=== PATIENT | male | born 1950 | race Caucasian/White ===

== ENCOUNTER → 2020-02-01 11:01 | Outpatient (BNVA) | payer MEDICARE, SELFPAY | PROVIDERS: Referring Provider Nurse Practitioner Family; Visit Provider Internal Medicine | DX: G47.33 Obstructive sleep apnea (adult) (pediatric) (principal); E66.9 Obesity, unspecified; Z68.30 Body mass index [BMI] 30.0-30.9, adult; J44.9 Chronic obstructive pulmonary disease, unspecified; Z79.899 Other long term (current) drug therapy; Z99.89 Dependence on other enabling machines and devices | CPT/HCPCS: 99212 ==

== ENCOUNTER 2020-07-03 10:04 | Emergency (ER) | payer MEDICARE, SELFPAY ==
--- NOTE | ~2020-07-03 | XR_ITS ---
EXAMINATION: XR TOES, RIGHT CLINICAL INFORMATION: Pain in the right foot fourth toe. Status post trauma. COMPARISON: None TECHNIQUE: 3 views of the right toes were obtained. FINDINGS: Oblique, slightly distracted, not significantly displaced fracture is noted through the proximal metaphysis of the fourth proximal phalanx. There is no intra-articular extension. No additional fractures are noted. Mild degenerative changes are noted at the first MTP joint. Mild degenerative changes at multiple interphalangeal joints. XR/XR toe RT min 2V IMPRESSION: Not significantly displaced oblique fracture through the proximal metaphysis of the fourth proximal phalanx without intra-articular extension.
[2020-07-03 10:08] VITALS: BP 122/67; PULSE 99; RESP 18; TEMP 36.7; O2SAT 93; BMI 31.8
--- NOTE | 2020-07-03 11:03 | ED.LOWEXIN ---
HPI - Extremity Injury (Lower) General Chief Complaint: Extremity Injury, Lower Stated Complaint: toe pain Time Seen by Provider: 07/03/20 10:19 Source: patient Mode of arrival: ambulatory Limitations: no limitations History of Present Illness HPI Narrative: 70 y/o male with history of DM, obesity, COPD, HTN, hypothyroidism, & chronic pain who presents to the ED with right 4th toe pain, swelling and bruising after he accidentally kicked a dresser yesterday. He reports new onset of redness and warmth to the top of his foot when he woke up today, which had him concerned give his history of diabetes. He reports pain with ambulation, significant bruising of 4th toe. No bruising on his foot. No fever, chills. No injuries or wounds to the bottom of his foot. No open areas. He reports adequate glucose control. MD complaint: foot injury Onset (ago): day(s) (1) Injury: Right: toes (4th) Type of Injury: blunt Place: home Severity: moderate Severity scale (1-10): 5 Relieving factors: immobilization Exacerbating factors: weight bearing and palpation Context: direct blow Associated symptoms: swelling and able to partially bear weight Other symptoms: none Related Data Home Medications Medication Instructions Recorded Confirmed amitriptyline 75 mg tablet 75 mg PO BEDTIME 02/01/20 atorvastatin 20 mg tablet 20 mg PO DAILY 02/01/20 docusate sodium 100 mg capsule 100 mg PO BID 02/01/20 dulaglutide 1.5 mg/0.5 mL mg SUBCUT QWEEK 02/01/20 subcutaneous pen injector glipizide 5 mg tablet 5 mg PO BID 02/01/20 levothyroxine 100 mcg tablet 100 mcg PO DAILY 02/01/20 lisinopril 5 mg tablet 5 mg PO DAILY 02/01/20 metformin 500 mg tablet,extended 1,000 mg PO BID 02/01/20 release 24 hr naloxone 4 mg/actuation nasal spray 0 spray INTRANASAL 02/01/20 oxycodone 30 mg tablet,crush 30 mg PO Q12H 02/01/20 resistant,extended release 12 hr tiotropium bromide 18 mcg capsule 1 cap INHALATION DAILY 02/01/20 with inhalation device Previous Rx's Medication Instructions Recorded umeclidinium 62.5 mcg/actuation 1 inh PO DAILY #30 ea 03/15/20 blister powder for inhalation albuterol sulfate 90 mcg/actuation 2 puff PO Q4-6H PRN #8.5 g 06/06/20 aerosol inhaler fluticasone furoate 200 1 ea PO DAILY #60 ea 06/06/20 mcg-vilanterol 25 mcg/dose inhalation powder cephalexin 500 mg PO Q8H #15 cap 07/03/20 Allergies Allergy/AdvReac Type Severity Reaction Status Date / Time No Known Allergies Allergy Unknown Unverified 11/26/19 15:18 [No Known Allergies*] Review of Systems Review of Systems: Constitutional: No Fever, No Chills Cardiovascular: No Chest Pain, No SOB Respiratory: No Cough Gastrointestinal: No Nausea, No Vomiting Genitourinary: No Dysuria, No Urinary Frequency, No Hematuria Musculoskeletal: + joint pain, No Myalgias Skin: No Skin Lesions, No rash, +ertythema Neuro: No Weakness, No Numbness Heme/Lymph: + Bruising, No Lymphadenopathy PMFSH Past Medical History Attestation statement: The following information was validated with the patient. Medical History COPD (chronic obstructive pulmonary disease) Obesity (BMI 30.0-34.9) EFRAIN on CPAP Social History Social History Smoking Status: Current every day smoker Packs Per Day: 0.5 Cigarettes Per Day: 5 Advance Directives: No Advance Directives Information Provided: No Physical Exam Vital Signs: Vital Signs: Last Vital Signs Temp 98.1 F 07/03/20 10:08 Pulse 99 07/03/20 10:08 Resp 18 07/03/20 10:08 BP 122/67 07/03/20 10:08 Pulse Ox 93 07/03/20 10:08 Body Mass Index 31.8 Appearance: Alert. Oriented X3. No acute distress. HEENT: normal inspection CVS: Normal heart rate and rhythm. Pulses normal. Respiratory: No respiratory distress. Skin: Skin warm and dry. Normal skin color. Normal skin turgor. No rashes. Extremities: right foot with swollen and ecchymotic 4th toe, tender to touch. 5cm area on the top of his right foot with erythema and warmth. 2+ DP pulse. normal plantar aspect of right foot. Neuro: Oriented X 3. No motor deficit. No sensory deficit. Gait not tested due to pain Course Course Course Narrative: 70 y/o male presenting with right 4th toe pain, swelling, bruising after blunt injury yesterday. New erythema and warmth to the dorsal foot, possible inflammatory vs infectious. XR showing Not significantly displaced oblique fracture through the proximal metaphysis of the fourth proximal phalanx without intra-articular extension. Placed in post-op shoe for comfort. Will start abx for possible cellulitis given his history of DM. Area was marked with a marker. He was advised to return to the ED if erythema extends beyond markings in 48 hours. Recommended f/u with PCP and Ortho. Patient agrees with plan. Critical Care Time Critical Care Time Critical Care Time: No Discharge Plan Discharge Patient Disposition: Home, Self-Care Instructions: Toe Fracture (ED) Additional Instructions: Your x-ray today showed you broke your 4th toe on the right foot. Wear the post-op show provided to you in the ER today. You are being started on antibiotics for possible infection of the skin. If the redness on your foot extends beyond the markings in the next 48 hours, call your doctor or come back to the ER for further evaluation. You may bear weight as tolerted. Recommend rest, elevation when possible and use of ice several times per day. Follow up with your doctor next week. Follow up with Orthopedics as well. Prescriptions: New cephalexin 500 mg capsule 500 mg PO Q8H Qty: 15 RF: 0 No Action umeclidinium [Incruse Ellipta] 62.5 mcg/actuation blister with device 1 inh PO DAILY Qty: 30 RF: 0 fluticasone furoate-vilanterol [Breo Ellipta] 200-25 mcg/dose blister with device 1 ea PO DAILY Qty: 60 RF: 0 albuterol sulfate 90 mcg/actuation HFA aerosol inhaler 2 puff PO Q4-6H PRN (Reason: for wheezing) Qty: 8.5 RF: 0 docusate sodium 100 mg capsule 100 mg PO BID RF: 0 Trulicity 1.5 mg/0.5 mL pen injector subcut QWEEK RF: 0 metformin 500 mg tablet extended release 24 hr 1,000 mg PO BID RF: 0 Spiriva with HandiHaler 18 mcg capsule, w/inhalation device 1 cap inhalation DAILY RF: 0 levothyroxine 100 mcg tablet 100 mcg PO DAILY RF: 0 lisinopril 5 mg tablet 5 mg PO DAILY RF: 0 atorvastatin 20 mg tablet 20 mg PO DAILY RF: 0 Narcan 4 mg/actuation spray,non-aerosol 0 spray intranasal RF: 0 glipizide 5 mg tablet 5 mg PO BID RF: 0 amitriptyline 75 mg tablet 75 mg PO BEDTIME RF: 0 oxycodone 30 mg tablet,oral only,ext.rel.12 hr 30 mg PO Q12H RF: 0 Referrals: Ru Bergman MD [Physician] - 2 days (broken toe, diabetic)
== END 2020-07-03 11:47 | disposition home or self-care (01) ==
PROVIDERS: Emergency Provider Emergency Medicine; PCP Internal Medicine
DX: S92.511A Displaced fracture of proximal phalanx of right lesser toe(s), initial encounter for closed fracture (principal); W22.03XA Walked into furniture, initial encounter; F17.210 Nicotine dependence, cigarettes, uncomplicated; Y93.89 Activity, other specified; Y92.013 Bedroom of single-family (private) house as the place of occurrence of the external cause; Y99.9 Unspecified external cause status
CPT/HCPCS: 73660; 99283; 99284

== ENCOUNTER → 2020-12-07 10:47 | Outpatient (BNVA) | payer MEDICARE, SELFPAY | PROVIDERS: PCP Internal Medicine; Visit Provider Internal Medicine | DX: J44.9 Chronic obstructive pulmonary disease, unspecified (principal); G47.33 Obstructive sleep apnea (adult) (pediatric); F17.200 Nicotine dependence, unspecified, uncomplicated; E66.9 Obesity, unspecified; Z99.89 Dependence on other enabling machines and devices | CPT/HCPCS: 99212 ==

== ENCOUNTER → 2021-02-08 11:51 | Outpatient (BNVA) | payer MEDICARE, SELFPAY | PROVIDERS: PCP Internal Medicine; Visit Provider Internal Medicine | DX: G47.33 Obstructive sleep apnea (adult) (pediatric) (principal); G47.34 Idiopathic sleep related nonobstructive alveolar hypoventilation; J44.9 Chronic obstructive pulmonary disease, unspecified; F17.200 Nicotine dependence, unspecified, uncomplicated; Z99.89 Dependence on other enabling machines and devices | CPT/HCPCS: Q3014 ==

== ENCOUNTER → 2021-04-12 13:22 | Outpatient (BNVA) | payer MEDICARE, SELFPAY | PROVIDERS: PCP Internal Medicine; Visit Provider Internal Medicine | DX: J44.9 Chronic obstructive pulmonary disease, unspecified (principal); G47.33 Obstructive sleep apnea (adult) (pediatric); G47.34 Idiopathic sleep related nonobstructive alveolar hypoventilation; F17.210 Nicotine dependence, cigarettes, uncomplicated; Z99.89 Dependence on other enabling machines and devices | CPT/HCPCS: 99212 ==

== ENCOUNTER 2021-05-18 15:53 | Emergency (ER) | payer MEDICARE, SELFPAY ==
[2021-05-18 16:12] VITALS: BP 143/64; PULSE 90; RESP 16; TEMP 36.5; O2SAT 93; BMI 32.5
--- NOTE | 2021-05-18 17:08 | ED_ITS ---
HPI - Wound/Laceration General Chief Complaint: Wound/Laceration Stated Complaint: laceration to left hand Time Seen by Provider: 05/18/21 16:55 Source: patient Mode of arrival: ambulatory Limitations: no limitations History of Present Illness HPI narrative: 71-year-old male with a history of COPD, EFRAIN on CPAP, obesity, well controlled diabetes who presents to the ER with a skin tear to the dorsal aspect of his l eft hand that he sustained about 5 hours ago accidentally. He reports he was moving a chair out of a pickup truck and it slid and his hand scraped against the tailgate. It caused an irregular laceration to the dorsal aspect of his hand and he had a hard time controlling the bleeding. He is not on any anticoagulation. He has full movement of the hand and digits. He denies any numbness, weakness, tingling. He states immediately after the injury he rinsed his hand thoroughly under soapy water. He is not up-to-date on his tetanus shot. Onset (ago): hour(s) Extremity Location: left: hand Place: home Patient tetanus UTD: No Context: accidental Associated symptoms: other (Bleeding) Treatments prior to arrival: bandage Related Data Home Medications Medication Instructions Recorded Confirmed amitriptyline 75 mg tablet 75 mg PO BEDTIME 02/01/20 atorvastatin 20 mg tablet 20 mg PO DAILY 02/01/20 dulaglutide 1.5 mg/0.5 mL mg SUBCUT QWEEK 02/01/20 subcutaneous pen injector glipizide 5 mg tablet 5 mg PO BID 02/01/20 levothyroxine 100 mcg tablet 100 mcg PO DAILY 02/01/20 lisinopril 5 mg tablet 5 mg PO DAILY 02/01/20 metformin 500 mg tablet,extended 1,000 mg PO BID 02/01/20 release 24 hr naloxone 4 mg/actuation nasal spray 0 spray INTRANASAL 02/01/20 oxycodone 30 mg tablet,crush 30 mg PO Q12H 02/01/20 resistant,extended release 12 hr tiotropium bromide 18 mcg capsule 1 cap INHALATION DAILY 02/01/20 with inhalation device docusate sodium 100 mg capsule 100 mg PO BID 12/07/20 morphine 30 mg immediate release 0 mg PO 12/07/20 tablet Previous Rx's Medication Instructions Recorded fluticasone furoate 200 1 ea PO DAILY #60 ea 06/06/20 mcg-vilanterol 25 mcg/dose inhalation powder (Breo Ellipta) albuterol sulfate 90 mcg/actuation 2 puff PO Q4-6H PRN #8.5 g 04/11/21 aerosol inhaler albuterol sulfate 90 mcg/actuation 2 puff INHALATION Q4-6H PRN 30 04/12/21 aerosol inhaler (ProAir HFA) Days #8.5 g fluticasone furoate 200 1 inh INHALATION DAILY 30 Days #60 04/12/21 mcg-vilanterol 25 mcg/dose ea inhalation powder (Breo Ellipta) Allergies Allergy/AdvReac Type Severity Reaction Status Date / Time No Known Allergies Allergy Unknown Verified 05/18/21 16:11 [No Known Allergies*] Review of Systems Review of Systems: Constitutional: No Fever, No Chills Cardiovascular: No Chest Pain, No SOB Gastrointestinal: No Nausea, No Vomiting Musculoskeletal: No joint pain, No Myalgias Skin: + Skin Lesions, No rash Neuro: No Weakness, No Numbness Psych: No Anxiety/Panic, No Depression Heme/Lymph: + Bruising, No Lymphadenopathy PMFSH Past Medical History Medical History COPD (chronic obstructive pulmonary disease) Nocturnal hypoxemia Obesity (BMI 30.0-34.9) EFRAIN on CPAP Smoker Social History Social History Cigarette Packs Per Day: 0.5 Cigarettes Per Day: 5 Advance Directives: Yes Advance Directives Information Provided: No Advance Directives on File: No Physical Exam Vital Signs: Vital Signs: Last Vital Signs Temp 97.7 F 05/18/21 16:12 Pulse 90 05/18/21 16:12 Resp 16 05/18/21 16:12 BP 143/64 H 05/18/21 16:12 Pulse Ox 93 05/18/21 16:12 BMI result Body Mass Index 32.5 Appearance: Alert. Oriented X3. No acute distress. HEENT: normal inspection CVS: Normal heart rate and rhythm. Pulses normal. Respiratory: No respiratory distress. Skin: Skin warm and dry. Normal skin color. Normal skin turgor. No rashes. Extremities: Dorsal aspect of the left hand with a complex, stellate, superficial skin tear with minior active oozing. Deep structures are intact. No carpal tenderness. Neurovascularly intact distally. Normal range of motion of all the digits in the wrist. Neuro: Oriented X 3. No motor deficit. No sensory deficit. Course Course Course Narrative: 71-year-old male presents to the ER for evaluation of a skin tear on the dorsal aspect of his left hand that he sustained 5 hours ago after hitting it against a tailgate. Minor oozing on arrival. Skin is too friable and thin to suture. Will control the bleeding and close the wound with Steri-Strips. Local wound care performed. Patient counseled. Tdap given Reevaluation(s) Reevaluation #1: Adequate wound closure with Steri-Strips. Sterile dressing applied. Wound care discussed. Stable for DC home. Procedures Laceration Laceration 1: Site: hand Side (If applicable): left Size (cm): 5 Description: irregular Depth: simple, single layer Pre-repair: wound explored, irrigated extensively and deep structures intact Skin layer closed with: other (Steri-Strips) Discharge Plan Discharge Clinical Impression: Skin tear of left hand without complication Patient Disposition: Home, Self-Care Instructions: Skin Tear (ED) Additional Instructions: Steri-Strips were used to close your wound today. Do not peel them off, as the free at the edges just trim them. They will fall off on their own. Do not get wet for 24 hours, after that you can briefly wash with soap and water then pat dry. Use bacitracin 2x per day. Keep wound clean and covered. Do not submerge in water, don't do the dishes If you develop signs of infection including increased pain, swelling, redness or drainage of pus come back to the ER for further evaluation. Prescriptions: No Action fluticasone furoate-vilanterol [Breo Ellipta] 200-25 mcg/dose blister with device 1 ea PO DAILY Qty: 60 0RF albuterol sulfate 90 mcg/actuation HFA aerosol inhaler 2 puff PO Q4-6H PRN (Reason: for wheezing) Qty: 8.5 0RF Trulicity 1.5 mg/0.5 mL pen injector subcut QWEEK 0RF metformin 500 mg tablet extended release 24 hr 1,000 mg PO BID 0RF Spiriva with HandiHaler 18 mcg capsule, w/inhalation device 1 cap inhalation DAILY 0RF levothyroxine 100 mcg tablet 100 mcg PO DAILY 0RF lisinopril 5 mg tablet 5 mg PO DAILY 0RF atorvastatin 20 mg tablet 20 mg PO DAILY 0RF Narcan 4 mg/actuation spray,non-aerosol 0 spray intranasal 0RF glipizide 5 mg tablet 5 mg PO BID 0RF amitriptyline 75 mg tablet 75 mg PO BEDTIME 0RF oxycodone 30 mg tablet,oral only,ext.rel.12 hr 30 mg PO Q12H 0RF docusate sodium 100 mg capsule 100 mg PO BID 0RF morphine 30 mg tablet 0 mg PO 0RF Breo Ellipta 200-25 mcg/dose blister with device 1 inh inhalation DAILY 30 Days Qty: 60 5RF albuterol sulfate [ProAir HFA] 90 mcg/actuation HFA aerosol inhaler 2 puff inhalation Q4-6H PRN (Reason: shortness of breath or wheezing) 30 Days Qty: 8.5 5RF
[2021-05-18] MEDS: Diphth,Pertus(ACell),Tet Adult 0.5 ML SYRINGE IM (17:33)
== END 2021-05-18 17:38 | disposition home or self-care (01) ==
PROVIDERS: Emergency Provider Emergency Medicine Emergency Medical Services; PCP Internal Medicine
DX: S61.412A Laceration without foreign body of left hand, initial encounter (principal); W26.8XXA Contact with other sharp object(s), not elsewhere classified, initial encounter; Y93.9 Activity, unspecified; Y92.009 Unspecified place in unspecified non-institutional (private) residence as the place of occurrence of the external cause; Y99.9 Unspecified external cause status
CPT/HCPCS: 12002; 90471; 90715; 99283; 99284

== ENCOUNTER → 2021-06-06 11:21 | Outpatient (BNVA) | payer MEDICARE, SELFPAY | PROVIDERS: PCP Internal Medicine; Visit Provider Internal Medicine | DX: G47.33 Obstructive sleep apnea (adult) (pediatric) (principal); J44.9 Chronic obstructive pulmonary disease, unspecified; J96.91 Respiratory failure, unspecified with hypoxia; J96.92 Respiratory failure, unspecified with hypercapnia; E66.9 Obesity, unspecified; F17.210 Nicotine dependence, cigarettes, uncomplicated; Z99.89 Dependence on other enabling machines and devices | CPT/HCPCS: 99212 ==

== ENCOUNTER → 2021-10-10 13:08 | Outpatient (BNVA) | payer MEDICARE, SELFPAY | PROVIDERS: PCP Internal Medicine; Visit Provider Internal Medicine | DX: J44.9 Chronic obstructive pulmonary disease, unspecified (principal); J96.91 Respiratory failure, unspecified with hypoxia; J96.92 Respiratory failure, unspecified with hypercapnia; G47.33 Obstructive sleep apnea (adult) (pediatric); F17.200 Nicotine dependence, unspecified, uncomplicated; Z99.89 Dependence on other enabling machines and devices; Z71.6 Tobacco abuse counseling | CPT/HCPCS: 99212 ==

== ENCOUNTER → 2022-02-06 10:23 | Outpatient (BNVA) | payer MEDICARE, SELFPAY | PROVIDERS: PCP Internal Medicine; Visit Provider Internal Medicine | DX: G47.33 Obstructive sleep apnea (adult) (pediatric) (principal); J96.91 Respiratory failure, unspecified with hypoxia; J96.92 Respiratory failure, unspecified with hypercapnia; J44.9 Chronic obstructive pulmonary disease, unspecified; E66.9 Obesity, unspecified; Z99.89 Dependence on other enabling machines and devices; Z68.29 Body mass index [BMI] 29.0-29.9, adult | CPT/HCPCS: 99212 ==

== ENCOUNTER → 2022-06-14 10:45 | Outpatient (BNVA) | payer OTHER, SELFPAY | PROVIDERS: PCP Internal Medicine; Visit Provider Internal Medicine | DX: G47.33 Obstructive sleep apnea (adult) (pediatric) (principal); J44.9 Chronic obstructive pulmonary disease, unspecified; J96.91 Respiratory failure, unspecified with hypoxia; J96.92 Respiratory failure, unspecified with hypercapnia; E66.9 Obesity, unspecified; F17.210 Nicotine dependence, cigarettes, uncomplicated; Z99.89 Dependence on other enabling machines and devices; Z68.29 Body mass index [BMI] 29.0-29.9, adult | CPT/HCPCS: 99212 ==

== ENCOUNTER 2022-10-16 10:48 | Outpatient (AMB) | payer OTHER, SELFPAY ==
[2022-10-16 10:53] VITALS: BP 120/60; PULSE 95; O2SAT 92; BMI 28.3
--- NOTE | 2022-10-16 10:53 | MHC.OFFVIS ---
Intake Vital Signs 10/16/22 10:53 Height 6 ft Weight 209 lb BMI 28.3 BP 120/60 Blood Pressure Location Lt brachial Position Sitting Pulse 95 Pulse Source Pulse Oximeter Pulse Oximetry (%) 92 Oxygen Delivery Method Room Air Intake Visit Reasons: sleep apnea Intake Note: pt is here for follow up and states his breathing is getting worse. He bleeds oxygen 2 liters with c-pap. 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: No Allergies No Known Allergies [No Known Allergies*] Allergy (Unknown, Verified 10/16/22 11:09) Medication List - Last Reconciled 10/16/22 by Brennen Smith MD albuterol sulfate 90 mcg/actuation 2 puffs PO Q4-6H PRN albuterol sulfate 2.5 mg (3 mL) inhalation Q6H PRN aspirin 81 mg PO DAILY atorvastatin 20 mg PO DAILY docusate sodium 100 mg PO BID dulaglutide mg subcut QWEEK qrapdfopixn-uovuvwchw-fuvjncld 200-62.5-25 mcg (Trelegy Ellipta) 1 ea inhalation DAILY 30 days lisinopril 5 mg PO DAILY magnesium gluconate 54 mg PO DAILY metformin ER 1,000 mg PO BID naloxone 4 mg/actuation 0 sprays intranasal nicotine (Nicotrol) 1 inh inhalation Q2-4H PRN 30 days oxycodone 30 mg PO Q4H PRN oxycodone ER 30 mg PO Q12H Do you need a note to return to daycare/school/sports/work: No HPI sleep apnea HPI Details THIS 72 YEARS OLD GENTLEMAN IS A REGULAR USER OF IVAPS AT NIGHT. ( iVAPS TARGET VENTILATION 5.8 L EPAP 7cm mIN ps 6 CMS MAX PS 15 CMs TARGET HR 15 ) HE GOES TO BED LATE AND ENDS UP USING IT ONLY FOR ABOUT 5 HOURS PER NIGHT. HIS COMPLIANCE IS EXCELLENT. HE HAS ADVANCED CHRONIC OBSTRUCTIVE PULMONARY. DISEASE WHICH HOWEVER IS REMAINING STABLE HE IS USING TRELEGY 1 INHALER DAILY. AND USES ALBUTEROL ONLY SPARINGLY. DURING THE DAYTIME HE IS ACTIVE AND GOES AROUND, THOUGH HE COMPLAINS OF GETTING SHORT OF BREATH MORE. EASILY THAN BEFORE HE DENIES ANY ATTACKS OF COUGH OR WHEEZING. PFSH Medical History COPD (chronic obstructive pulmonary disease) Nocturnal hypoxemia Obesity (BMI 30.0-34.9) EFRAIN on CPAP Respiratory failure with hypoxia and hypercapnia Smoker Social History Patient Tobacco Use Status: Current everyday Tobacco user Tobacco use type: Cigarette Cigarette Packs Per Day: 0.5 Cigarettes Per Day: 10 Years Smoked: 20+ years, could be a pack a day at times. Review of Systems Const All systems reviewed & are unremarkable except as noted in HPI and below Eyes Reports no additional complaints ENT Reports no additional complaints Card Denies chest pain, Denies irregular heart rhythm and Denies leg edema Resp Reports as per HPI GI Reports no additional complaints Reports no additional complaints Musc Reports back pain (Chronic, being treated with long-acting oxycodone) Skin/Breast Reports system reviewed and no additional complaints, except as documented Neuro Reports no additional complaints Psych Reports no additional complaints Endo Reports other (Being treated for type 2 diabetes mellitus and hyperlipidemia, hypothyroidi) Physical Exam Vital Signs: Last Vital Signs Pulse 95 10/16/22 10:53 BP 120/60 10/16/22 10:53 Pulse Ox 92 10/16/22 10:53 Oxygen Delivery Method Room Air 10/16/22 10:53 BMI result Body Mass Index 28.3 Const General: healthy appearing, comfortable, no acute distress, alert and awake Orientation/consciousness: patient oriented x3 HEENT Head: Yes normal to inspection General nose exam: No nasal polyps present and No nasal discharge present Face and sinus: Yes sinuses nontender Mouth: oropharynx normal Throat: Yes posterior oropharynx normal Eyes General: appearance normal, both eyes and all related structures Neck Neck: Yes normal visual inspection, Yes no lymphadenopathy, Yes trachea midline and Yes no JVD Thyroid: Thyroid normal Chest Chest palpation & inspection: normal inspection of the chest, normal palpation of entire chest wall and no tenderness Resp Other: Percussion note is resonant, breath sounds are distant but equal on both sides with prolonged expiratory phase. He has no audible wheezes or rhonchi. Cardio Palpation: normal PMI Rate: regular rate Rhythm: regular rhythm Heart sounds: no gallops and no murmurs GI Palpation (GI): Soft to palpation, nontender, No hepatosplenomegaly present and no masses Auscultation: normal bowel sounds Back/Spine/Pelvis Thoracic/Lumbar Spine: thoracic and lumbar spine normal to inspection Skin General skin exam: no rashes or lesions noted Neuro General: patient oriented x3 and no focal motor deficits Cranial nerves: Yes CN's II-XII intact bilaterally Extrem General: Yes normal to inspection, Yes no clubbing, cyanosis or edema and Yes no calf tenderness Psych Appearance: grossly normal and well kempt Speech and movement: Normal speech and movement present Results Reviewed Results Reviewed: COMPLIANCE REPORT IS REVIEWED. USED 29/30 NIGHTS, 97%. AVERAGE USE PER NIGHT 5 HOURS . SOME LEAK IS NOTED MAXIMUM 57.6. RESIDUAL AHI 2.1 HE DOES USE O2 2 L/MINUTE ALONG WITH THE VENTILATOR. Assessment & Plan Assessment & Plan (1) COPD (chronic obstructive pulmonary disease): Comment: COPD, IS SEVERE , BUT SEEMS TO BE CONTROLLED AND STABLE . TX: TRELEGY ELLIPTA ONE INH DAILY . script renewed PROAIR HFA 2 PUFFS Q 6 HRS PRN .( SCRIPT RENEWED ) Code(s): J44.9 - Chronic obstructive pulmonary disease, unspecified (2) EFRAIN on CPAP: Comment: HE HAS CHRONIC EFRAIN/HYPOVENTILATION SYNDROME. WELL TREATED WITH HIS NONINVASIVE VENTILATORY SUPPORT AT NIGHT(IVAPS ) with nasal pillows. COMPLIANCE IS GOOD . ADVISED TO USE AT LEAST FOR 6 HOURS PER NIGHT. Code(s): G47.33 - Obstructive sleep apnea (adult) (pediatric); Z99.89 - Dependence on other enabling machines and devices (3) Nocturnal hypoxemia: Comment: For his nocturnal hypoxemia he will continue to use O2 2 L/minute along with the CPAP. Code(s): G47.34 - Idiopathic sleep related nonobstructive alveolar hypoventilation (4) Respiratory failure with hypoxia and hypercapnia: Comment: Has chronic EFRAIN/hypoventilation syndrome, It is well treated with IVAPS mode of ventilatory support. Also uses O2 2 L/minute at night along with the CPAP. Advise that who E good use O2 2 L/minute for short intervals p.r.n. during the daytime, Code(s): J96.91 - Respiratory failure, unspecified with hypoxia; J96.92 - Respiratory failure, unspecified with hypercapnia (5) Smoker: Comment: He has been a chronic smoker, down to 10 cigarettes a day . COUNSELLED TO QUIT COMPLETELY. RISKS CONTINUED SMOKING OR EXPLAINED.. He said he is going to try to cut down further, likes to try using NICOTROL , PRESCRIPTION SENT *Also re-discussed about annual lung screening program. He declined to participate in that. Says that he does not want to know anything, and has anxiety about going in the CT scan tube. still agreed to see the Annual Screening team Code(s): F17.200 - Nicotine dependence, unspecified, uncomplicated Coding Level of Care Code Est Pt Level 4 (94919) Diagnoses COPD (chronic obstructive pulmonary disease) J44.9 EFRAIN on CPAP G47.33; Z99.89 Nocturnal hypoxemia G47.34 Respiratory failure with hypoxia and hypercapnia J96.91; J96.92 Smoker F17.200
== END 2022-10-16 11:20 | disposition home or self-care (01) ==
PROVIDERS: PCP Internal Medicine; Visit Provider Internal Medicine
DX: J44.9 Chronic obstructive pulmonary disease, unspecified (principal); G47.33 Obstructive sleep apnea (adult) (pediatric); Z99.89 Dependence on other enabling machines and devices; G47.34 Idiopathic sleep related nonobstructive alveolar hypoventilation; J96.91 Respiratory failure, unspecified with hypoxia; J96.92 Respiratory failure, unspecified with hypercapnia; F17.200 Nicotine dependence, unspecified, uncomplicated
CPT/HCPCS: 99214

== ENCOUNTER → 2022-10-16 10:48 | Outpatient (BNVA) | payer OTHER, SELFPAY | PROVIDERS: Visit Provider Internal Medicine | DX: J44.9 Chronic obstructive pulmonary disease, unspecified (principal); G47.33 Obstructive sleep apnea (adult) (pediatric); G47.34 Idiopathic sleep related nonobstructive alveolar hypoventilation; J96.91 Respiratory failure, unspecified with hypoxia; J96.92 Respiratory failure, unspecified with hypercapnia; F17.210 Nicotine dependence, cigarettes, uncomplicated; Z99.89 Dependence on other enabling machines and devices | CPT/HCPCS: 99212 ==

== ENCOUNTER 2023-02-18 10:52 | Outpatient (AMB) | payer OTHER, SELFPAY ==
[2023-02-18 10:53] VITALS: BP 148/68; PULSE 97; O2SAT 93; BMI 28.7
--- NOTE | 2023-02-18 10:53 | MHC.OFFVIS ---
Intake Vital Signs 02/18/23 10:53 Height 6 ft Weight 212 lb BMI 28.7 BP 148/68 H Blood Pressure Location Lt brachial Position Sitting Pulse 97 Pulse Source Pulse Oximeter Pulse Oximetry (%) 93 Oxygen Delivery Method Room Air Intake Visit Reasons: sleep apnea Intake Note: pt is here for follow up and he does state more increased in shortness of breath, Child Development Assistant Required: No Allergies No Known Allergies [No Known Allergies*] Allergy (Unknown, Verified 02/18/23 11:20) Medication List - Last Reconciled 02/18/23 by Brennen Smith MD albuterol sulfate 2.5 mg (3 mL) inhalation Q6H PRN albuterol sulfate 90 mcg/actuation 2 puffs PO Q4-6H PRN 30 days aspirin 81 mg PO DAILY atorvastatin 20 mg PO DAILY docusate sodium 100 mg PO BID dulaglutide mg subcut QWEEK ulcambipiye-naxkiedgb-ejcutfcy 200-62.5-25 mcg (Trelegy Ellipta) 1 ea inhalation DAILY 30 days lisinopril 5 mg PO DAILY magnesium gluconate 54 mg PO DAILY metformin ER 1,000 mg PO BID naloxone 4 mg/actuation 0 sprays intranasal nicotine (Nicotrol) 1 inh inhalation Q2-4H PRN 30 days oxycodone 20 mg PO Q4H PRN oxycodone ER 30 mg PO Q12H Do you need a note to return to daycare/school/sports/work: No HPI sleep apnea HPI Details 72 years old gentleman a long-time smoker, has chronic obstructive pulmonary disease which is quite severe. He is retired but does lot of the [employer] work at home. He is still smoking about half pack of cigarettes a day. Claims that he gets short of breath on exertion , and only occasional feeling of congestion and wheezing at rest. He is using Trelegy 1 inhalation daily and albuterol only as needed. He remains moderately overweight, He is a case of obstructive sleep apnea. Uses CPAP with nasal pillows. He is very compliant, and gets good sleep during the night. He has chronic back pain for which he uses OxyContin twice a day as well as oxycodone p.r.n.. Has been on gabapentin which he has stop because it makes him feel weak and groggy. [facility] Medical History Respiratory failure with hypoxia and hypercapnia Nocturnal hypoxemia Smoker COPD (chronic obstructive pulmonary disease) EFRAIN on CPAP Obesity (BMI 30.0-34.9) Social History Patient Tobacco Use Status: Current everyday Tobacco user Tobacco use type: Cigarette Cigarette Packs Per Day: 0.5 Cigarettes Per Day: 10 Years Smoked: 20+ years, could be a pack a day at times. Review of Systems Const All systems reviewed & are unremarkable except as noted in HPI and below Eyes Reports no additional complaints ENT Reports no additional complaints Card Denies chest pain, Denies irregular heart rhythm and Denies leg edema Resp Reports as per HPI GI Reports no additional complaints Reports no additional complaints Musc Reports back pain (Chronic, being treated with long-acting oxycodone) Skin/Breast Reports system reviewed and no additional complaints, except as documented Neuro Reports no additional complaints Psych Reports no additional complaints Endo Reports other (Being treated for type 2 diabetes mellitus and hyperlipidemia, hypothyroidi) Physical Exam Vital Signs: Last Vital Signs Pulse 97 02/18/23 10:53 BP 148/68 H 02/18/23 10:53 Pulse Ox 93 02/18/23 10:53 Oxygen Delivery Method Room Air 02/18/23 10:53 BMI result Body Mass Index 28.7 Const General: healthy appearing, comfortable, no acute distress, alert and awake Orientation/consciousness: patient oriented x3 HEENT Head: Yes normal to inspection General nose exam: No nasal polyps present and No nasal discharge present Face and sinus: Yes sinuses nontender Mouth: oropharynx normal Throat: Yes posterior oropharynx normal Eyes General: appearance normal, both eyes and all related structures Neck Neck: Yes normal visual inspection, Yes no lymphadenopathy, Yes trachea midline and Yes no JVD Thyroid: Thyroid normal Chest Chest palpation & inspection: normal inspection of the chest, normal palpation of entire chest wall and no tenderness Resp Other: Percussion note is resonant, breath sounds are distant but equal on both sides with prolonged expiratory phase. He has no audible wheezes or rhonchi. Cardio Palpation: normal PMI Rate: regular rate Rhythm: regular rhythm Heart sounds: no gallops and no murmurs GI Palpation (GI): Soft to palpation, nontender, No hepatosplenomegaly present and no masses Auscultation: normal bowel sounds Back/Spine/Pelvis Thoracic/Lumbar Spine: thoracic and lumbar spine normal to inspection Skin General skin exam: no rashes or lesions noted Neuro General: patient oriented x3 and no focal motor deficits Cranial nerves: Yes CN's II-XII intact bilaterally Extrem General: Yes normal to inspection, Yes no clubbing, cyanosis or edema and Yes no calf tenderness Psych Appearance: grossly normal and well kempt Speech and movement: Normal speech and movement present Results Reviewed Results Reviewed: Compliance report is reviewed. He has used 30/30 nights, 100%. Average use it per night 6 hours 0 minutes. iVAPS with nasal pillows. . There is a mild air leak residual AHI 3.6 Assessment & Plan Assessment & Plan (1) COPD (chronic obstructive pulmonary disease): Comment: COPD, IS SEVERE , BUT SEEMS TO BE CONTROLLED AND STABLE . TX: TRELEGY ELLIPTA ONE INH DAILY . script renewed PROAIR HFA 2 PUFFS Q 6 HRS PRN . Code(s): J44.9 - Chronic obstructive pulmonary disease, unspecified Plan: as above (2) Respiratory failure with hypoxia and hypercapnia: Comment: Has chronic COPD/EFRAIN/hypoventilation syndrome, It is well treated with IVAPS mode of ventilatory support. Also uses O2 2 L/minute at night along with the CPAP. Advise that who he can use O2 2 L/minute for short intervals p.r.n. during the daytime, Code(s): J96.91 - Respiratory failure, unspecified with hypoxia; J96.92 - Respiratory failure, unspecified with hypercapnia Plan: as above (3) Smoker: Comment: He has been a chronic smoker, down to 10 cigarettes a day . COUNSELLED TO QUIT COMPLETELY. RISKS CONTINUED SMOKING OR EXPLAINED.. He said he is going to try to cut down further, likes to try using NICOTROL , PRESCRIPTION SENT *Also re-discussed about Annual lung screening program. He declined to participate in that. Says that he does not want to know anything, and has anxiety about going in the CT scan tube. still agreed to see the Annual Screening team Code(s): F17.200 - Nicotine dependence, unspecified, uncomplicated Plan: as above (4) EFRAIN on CPAP: Comment: HE HAS CHRONIC EFRAIN/HYPOVENTILATION SYNDROME. WELL TREATED WITH HIS NONINVASIVE VENTILATORY SUPPORT AT NIGHT(IVAPS ) with nasal pillows. COMPLIANCE IS GOOD . ADVISED TO USE AT LEAST FOR 6 HOURS PER NIGHT. Code(s): G47.33 - Obstructive sleep apnea (adult) (pediatric); Z99.89 - Dependence on other enabling machines and devices Plan: as above Coding Level of Care Code Est Pt Level 4 (07138) Diagnoses COPD (chronic obstructive pulmonary disease) J44.9 Respiratory failure with hypoxia and hypercapnia J96.91; J96.92 Smoker F17.200 EFRAIN on CPAP G47.33; Z99.89
== END 2023-02-18 11:21 | disposition home or self-care (01) ==
PROVIDERS: PCP Internal Medicine; Visit Provider Internal Medicine
DX: J44.9 Chronic obstructive pulmonary disease, unspecified (principal); J96.91 Respiratory failure, unspecified with hypoxia; J96.92 Respiratory failure, unspecified with hypercapnia; F17.200 Nicotine dependence, unspecified, uncomplicated; G47.33 Obstructive sleep apnea (adult) (pediatric); Z99.89 Dependence on other enabling machines and devices
CPT/HCPCS: 99214

== ENCOUNTER → 2023-02-18 10:52 | Outpatient (BNVA) | payer OTHER, SELFPAY | PROVIDERS: PCP Internal Medicine; Visit Provider Internal Medicine | DX: J44.9 Chronic obstructive pulmonary disease, unspecified (principal); J96.91 Respiratory failure, unspecified with hypoxia; J96.92 Respiratory failure, unspecified with hypercapnia; G47.33 Obstructive sleep apnea (adult) (pediatric); F17.210 Nicotine dependence, cigarettes, uncomplicated; Z99.89 Dependence on other enabling machines and devices | CPT/HCPCS: 99212 ==

== ENCOUNTER 2023-02-27 13:10 | Outpatient (AMB) | payer OTHER, SELFPAY ==
[2023-02-27 13:40] VITALS: BP 100/60; PULSE 98; O2SAT 94
--- NOTE | 2023-02-27 13:40 | MHC.OFFVIS ---
Intake Vital Signs 02/27/23 13:40 Weight 211 lb 10.3 oz BP 100/60 Blood Pressure Location Rt brachial Position Sitting Pulse 98 Pulse Source Pulse Oximeter Pulse Oximetry (%) 94 Oxygen Delivery Method Room Air Intake Visit Reasons: 6 minute walk Allergies No Known Allergies [No Known Allergies*] Allergy (Unknown, Verified 02/27/23 13:41) Medication List - Last Reconciled 02/27/23 by Stephanie Oakes LPN albuterol sulfate 2.5 mg (3 mL) inhalation Q6H PRN albuterol sulfate 90 mcg/actuation 2 puffs PO Q4-6H PRN 30 days aspirin 81 mg PO DAILY atorvastatin 20 mg PO DAILY docusate sodium 100 mg PO BID dulaglutide mg subcut QWEEK imirsvczjor-wyoaeezgb-kossfsmp 200-62.5-25 mcg (Trelegy Ellipta) 1 ea inhalation DAILY 30 days lisinopril 5 mg PO DAILY magnesium gluconate 54 mg PO DAILY metformin ER 1,000 mg PO BID naloxone 4 mg/actuation 0 sprays intranasal nicotine (Nicotrol) 1 inh inhalation Q2-4H PRN 30 days oxycodone 20 mg PO Q4H PRN oxycodone ER 30 mg PO Q12H PFSH Medical History Respiratory failure with hypoxia and hypercapnia Nocturnal hypoxemia Smoker COPD (chronic obstructive pulmonary disease) EFRAIN on CPAP Obesity (BMI 30.0-34.9) Social History Patient Tobacco Use Status: Current everyday Tobacco user Tobacco use type: Cigarette Cigarette Packs Per Day: 0.5 Cigarettes Per Day: 10 Years Smoked: 20+ years, could be a pack a day at times. Physical Exam Vital Signs: Last Vital Signs Pulse 98 02/27/23 13:40 BP 100/60 02/27/23 13:40 Pulse Ox 94 02/27/23 13:40 Oxygen Delivery Method Room Air 02/27/23 13:40 Office Procedures 6 Minute Walk Time:: 13:30 SPO2 % at rest: 93 Pulse at rest: 98 SPO2 % during excercise: 93 Pulse during excercise: 125 SPO2 % after excercise: 94 Pulse after excercise: 109 Distance in yards walked: 600 Matilda Score: 5 Performance Observations:: Salvador walked on level ground without assistance. He walked on room air and maintained his SPO2 93-94% during the entire walk, no supplemental O2 needed. He did stop at 1 minute for a brief rest d/t fatigue and foot pain from neuropathy. Walk performed by Zohra Diaz RRT. [id number] - 6 Minute Walk Assessment & Plan Assessment & Plan (1) COPD (chronic obstructive pulmonary disease): Comment: COPD, IS SEVERE , BUT SEEMS TO BE CONTROLLED AND STABLE . TX: TRELEGY ELLIPTA ONE INH DAILY . script renewed PROAIR HFA 2 PUFFS Q 6 HRS PRN . Code(s): J44.9 - Chronic obstructive pulmonary disease, unspecified Plan: continue the same Orders: Orders AMB 6 minute walk 02/27/23 J44.9 - Chronic obstructive pulmonary disease, unspecified Coding Level of Care Code Established Pt Est Pt Level 1 (48123) Patient Type Established Diagnoses COPD (chronic obstructive pulmonary disease) J44.9 CPT Codes Coding ([id number]) Comment NURSE VISIT ONLY
[2023-02-27 13:43] VITALS: PULSE 98; O2SAT 93
== END 2023-02-27 13:52 | disposition home or self-care (01) ==
PROVIDERS: PCP Internal Medicine; Visit Provider Internal Medicine
DX: J44.9 Chronic obstructive pulmonary disease, unspecified (principal)
CPT/HCPCS: 94618

== ENCOUNTER → 2023-02-27 13:10 | Outpatient (BNVA) | payer OTHER, SELFPAY | PROVIDERS: PCP Internal Medicine; Visit Provider Internal Medicine | DX: J44.9 Chronic obstructive pulmonary disease, unspecified (principal) | CPT/HCPCS: 94618; 99211 ==

== ENCOUNTER 2023-08-20 11:14 | Outpatient (AMB) | payer OTHER, SELFPAY ==
--- NOTE | 2023-08-20 11:19 | A.OFFVIS_ITS ---
Vital Signs 08/20/23 11:20 Height 6 ft Weight 209 lb 0.44 oz BMI 28.3 BP 104/58 L Blood Pressure Location Lt brachial Position Sitting Pulse 91 Pulse Source Pulse Oximeter Pulse Oximetry (%) 95 Oxygen Delivery Method Room Air Intake Visit Reasons: sleep apnea Intake Note: pt is here for follow up and states oxygen with bi-pap., Executive Talent Acquisition Consultant Required: No Allergies No Known Allergies [No Known Allergies*] Allergy (Unknown, Verified 08/20/23 11:27) HPI Comments Details: This 73 years old gentleman, is a case of advanced chronic obstructive pulmonary disease, as well as obstructive sleep apnea/hypoventilation syndrome. He is being treated with AirCurve 10 ST -A , iVAPS mode along with O2 2 L/minute at night. He is compliant and uses the respirator every night, but he is using only for about 3-4 hours. He has hard time to fall asleep and usually sleeps between 01:00 to 05:00 AM His sleep schedule is somewhat deranged . He is still smoking half to 1 pack of cigarettes a day, he is active in ANNUAL LUNG SCREENING PROGRAM. Complains of getting short of breath when he walks around, and has intermittent cough without much expectoration. He is using Trelegy appy Ellipta 1 inhalation daily and uses albuterol only once in a while. [facility] Medical History Respiratory failure with hypoxia and hypercapnia Nocturnal hypoxemia Smoker COPD (chronic obstructive pulmonary disease) EFRAIN on CPAP Obesity (BMI 30.0-34.9) Social History Patient Tobacco Use Status: Current everyday Tobacco user Tobacco use type: Cigarette Cigarette Packs Per Day: 0.5 Cigarettes Per Day: 10 Years Smoked: 20+ years, could be a pack a day at times. Review of Systems Const All systems reviewed & are unremarkable except as noted in HPI and below Eyes Reports no additional complaints ENT Reports no additional complaints Card Denies chest pain, Denies irregular heart rhythm and Denies leg edema Resp Reports as per HPI GI Reports no additional complaints Reports no additional complaints Musc Reports back pain (Chronic, being treated with long-acting oxycodone) Skin/Breast Reports system reviewed and no additional complaints, except as documented Neuro Reports no additional complaints Psych Reports no additional complaints Endo Reports other (Being treated for type 2 diabetes mellitus and hyperlipidemia, hypothyroidi) Physical Exam Vital Signs: Last Vital Signs Pulse 91 08/20/23 11:20 BP 104/58 L 08/20/23 11:20 Pulse Ox 95 08/20/23 11:20 Oxygen Delivery Method Room Air 08/20/23 11:20 BMI result Body Mass Index 28.3 Const General: healthy appearing, comfortable, no acute distress, alert and awake Orientation/consciousness: patient oriented x3 HEENT Head: Yes normal to inspection General nose exam: No nasal polyps present and No nasal discharge present Face and sinus: Yes sinuses nontender Mouth: oropharynx normal Throat: Yes posterior oropharynx normal Eyes General: appearance normal, both eyes and all related structures Neck Neck: Yes normal visual inspection, Yes no lymphadenopathy, Yes trachea midline and Yes no JVD Thyroid: Thyroid normal Chest Chest palpation & inspection: normal inspection of the chest, normal palpation of entire chest wall and no tenderness Resp Other: Percussion note is resonant, breath sounds are distant but equal on both sides with prolonged expiratory phase. He has no audible wheezes or rhonchi. Cardio Palpation: normal PMI Rate: regular rate Rhythm: regular rhythm Heart sounds: no gallops and no murmurs GI Palpation (GI): Soft to palpation, nontender, No hepatosplenomegaly present and no masses Auscultation: normal bowel sounds Back/Spine/Pelvis Thoracic/Lumbar Spine: thoracic and lumbar spine normal to inspection Skin General skin exam: no rashes or lesions noted Neuro General: patient oriented x3 and no focal motor deficits Cranial nerves: Yes CN's II-XII intact bilaterally Extrem General: Yes normal to inspection, Yes no clubbing, cyanosis or edema and Yes no calf tenderness Psych Appearance: grossly normal and well kempt Speech and movement: Normal speech and movement present Results Reviewed Results Reviewed: Compliance report for the last 30 nights is reviewed He has used 27/30 nights, 90%. Average use it per night 3 hours 58 minutes. There is only small amount of air leak Residual AHI only 1 SPIROMETRY FVC FEV1 FEV1/FVC FEF 25-75 02/01/20 70% 57 % 62 37 % 08/20/23 Assessment & Plan Assessment & Plan (1) Obesity (BMI 30.0-34.9): Comment: CONTINUES TO BE MODERATELY OVERWEIGHT, HAS LOST A FEW LB SINCE LAST YEAR. Code(s): E66.9 - Obesity, unspecified Category: Medical Plan: ENCOURAGED TO LOSE WEIGHT SLOWLY, BUT DOES NOT SEEM TO BE REALISTIC GOAL IN HIS CASE. (2) EFRAIN on CPAP: Comment: HE HAS CHRONIC EFRAIN/HYPOVENTILATION SYNDROME. WELL TREATED WITH HIS NONINVASIVE VENTILATORY SUPPORT AT NIGHT(IVAPS ) with nasal pillows. COMPLIANCE IS SOME WHAT SUBOPTIMAL . Code(s): G47.33 - Obstructive sleep apnea (adult) (pediatric); Z99.89 - Dependence on other enabling machines and devices Category: Medical Plan: HAD A GOOD TALK AND ENCOURAGED HIM TO USE AT LEAST FOR. 5-6 HOURS EVERY NIGHT HE MAY USE IT FOR AN HOUR OR 2 DURING THE DAYTIME WELL. (3) COPD (chronic obstructive pulmonary disease): Comment: COPD, IS SEVERE , BUT SEEMS TO BE CONTROLLED AND STABLE . Code(s): J44.9 - Chronic obstructive pulmonary disease, unspecified Category: Medical Plan: TX: TRELEGY ELLIPTA ONE INH DAILY . script renewed PROAIR HFA 2 PUFFS Q 6 HRS PRN .( SCRIPT RENEWED ) (4) Smoker: Comment: He has been a chronic smoker, down to 15 cigarettes a day . Code(s): F17.200 - Nicotine dependence, unspecified, uncomplicated Category: Social Hx Plan: COUNSELLED TO QUIT COMPLETELY. RISKS CONTINUED SMOKING OR EXPLAINED.. He said he is going to try to cut down further, likes to try using NICOTROL , PRESCRIPTION SENT *Also re-discussed about Annual lung screening program. He declined to participate in that. Says that he does not want to know anything, and has anxiety about going in the CT scan tube. still agreed to see the Annual Screening team (5) Respiratory failure with hypoxia and hypercapnia: Comment: Has chronic COPD/EFRAIN/hypoventilation syndrome, It is well treated with IVAPS mode of ventilatory support. Also uses O2 2 L/minute at night along with the CPAP. Code(s): J96.91 - Respiratory failure, unspecified with hypoxia; J96.92 - Respiratory failure, unspecified with hypercapnia Category: Medical Plan: Advised that he can use O2 2 L/minute for short intervals p.r.n. during the daytime, Coding Level of Care Code Est Pt Level 4 (71286) Diagnoses Obesity (BMI 30.0-34.9) E66.9 EFRAIN on CPAP G47.33; Z99.89 COPD (chronic obstructive pulmonary disease) J44.9 Smoker F17.200 Respiratory failure with hypoxia and hypercapnia J96.91; J96.92
[2023-08-20 11:20] VITALS: BP 104/58; PULSE 91; O2SAT 95; BMI 28.3
== END 2023-08-20 11:57 | disposition home or self-care (01) ==
PROVIDERS: PCP Internal Medicine; Visit Provider Internal Medicine
DX: E66.9 Obesity, unspecified (principal); G47.33 Obstructive sleep apnea (adult) (pediatric); Z99.89 Dependence on other enabling machines and devices; J44.9 Chronic obstructive pulmonary disease, unspecified; F17.200 Nicotine dependence, unspecified, uncomplicated; J96.91 Respiratory failure, unspecified with hypoxia; J96.92 Respiratory failure, unspecified with hypercapnia
CPT/HCPCS: 94010; 99214

== ENCOUNTER → 2023-08-20 11:14 | Outpatient (BNVA) | payer OTHER, SELFPAY | PROVIDERS: PCP Internal Medicine; Visit Provider Internal Medicine | DX: J44.9 Chronic obstructive pulmonary disease, unspecified (principal); J96.91 Respiratory failure, unspecified with hypoxia; J96.92 Respiratory failure, unspecified with hypercapnia; G47.33 Obstructive sleep apnea (adult) (pediatric); E66.9 Obesity, unspecified; F17.210 Nicotine dependence, cigarettes, uncomplicated; Z68.28 Body mass index [BMI] 28.0-28.9, adult; Z99.89 Dependence on other enabling machines and devices | CPT/HCPCS: 94010; 99212 ==

== ENCOUNTER 2023-12-24 11:11 | Outpatient (AMB) | payer OTHER, SELFPAY ==
--- NOTE | 2023-12-24 11:21 | MHC.OFFVIS ---
Vital Signs 12/24/23 11:22 Height 6 ft Weight 217 lb 2.485 oz BMI 29.4 BP 120/62 Blood Pressure Location Lt brachial Position Sitting Pulse 93 Pulse Source Pulse Oximeter Pulse Oximetry (%) 94 Oxygen Delivery Method Room Air Intake Visit Reasons: Sleep apnea Intake Note: pt is here for follow up of EFRAIN, he is feeling okay. Veteran Appeals Reviewer Required: No Allergies No Known Allergies [No Known Allergies*] Allergy (Unknown, Verified 12/24/23 11:40) Medication List - Last Reconciled 12/24/23 by Brennen Smith MD albuterol sulfate 2.5 mg (3 mL) inhalation Q6H PRN albuterol sulfate 90 mcg/actuation 2 puffs PO Q4-6H PRN 30 days aspirin 81 mg PO DAILY atorvastatin 20 mg PO DAILY docusate sodium 100 mg PO BID dulaglutide mg subcut QWEEK idsqdflgqhg-lzcghgwzy-emzpcjxm 200-62.5-25 mcg (Trelegy Ellipta) 1 ea inhalation DAILY 30 days lisinopril 5 mg PO DAILY magnesium gluconate 54 mg PO DAILY metformin ER 1,000 mg PO BID naloxone 4 mg/actuation 0 sprays intranasal nicotine (Nicotrol) 1 inh inhalation Q2-4H PRN 30 days oxycodone 20 mg PO Q4H PRN oxycodone ER 30 mg PO Q12H Do you need a note to return to daycare/school/sports/work: No HPI HPI Sleep apnea: Details: TENZIN IS 73 YEARS OLD GENTLEMAN. A HARD CORE SMOKER, STILL SMOKING 1 PACK A DAY. HAS ADVANCED CHRONIC OBSTRUCTIVE PULMONARY DISEASE, CONTROLLED WITH TRELEGY ELLIPTA ONCE A DAY WHICH HE USES REGULARLY. HE IS USING ALBUTEROL ONLY ONCE IN A WHILE. HE CONTINUES TO HAVE INTERMITTENT HACKING COUGH BUT THAT IS RELATED TO HIS SMOKING. HE DOES GET SHORT OF BREATH ON CLIMBING STAIRS OR WALKING UP HILL. HIS COMPLEX SLEEP APNEA IS WELL CONTROLLED WITH THE USE OF IVAPS MODE OF TREATMENT. HE IS USING O2 2 L/MINUTE ALONG WITH THE IVAPS . [facility] Medical History Respiratory failure with hypoxia and hypercapnia Nocturnal hypoxemia Smoker COPD (chronic obstructive pulmonary disease) EFRAIN on CPAP Obesity (BMI 30.0-34.9) Social History Patient Tobacco Use Status: Current everyday Tobacco user Tobacco use type: Cigarette Cigarette Packs Per Day: 0.5 Cigarettes Per Day: 10 Years Smoked: 20+ years, could be a pack a day at times. Review of Systems Const All systems reviewed & are unremarkable except as noted in HPI and below Eyes Reports no additional complaints ENT Reports no additional complaints Card Denies chest pain, Denies irregular heart rhythm and Denies leg edema Resp Reports as per HPI GI Reports no additional complaints Reports no additional complaints Musc Reports back pain (Chronic, being treated with long-acting oxycodone) Skin/Breast Reports system reviewed and no additional complaints, except as documented Neuro Reports no additional complaints Psych Reports no additional complaints Endo Reports other (Being treated for type 2 diabetes mellitus and hyperlipidemia, hypothyroidi) Physical Exam Vital Signs: Last Vital Signs Pulse 93 12/24/23 11:22 BP 120/62 12/24/23 11:22 Pulse Ox 94 12/24/23 11:22 Oxygen Delivery Method Room Air 12/24/23 11:22 BMI result Body Mass Index 29.4 Const General: healthy appearing, comfortable, no acute distress, alert and awake Orientation/consciousness: patient oriented x3 HEENT Head: Yes normal to inspection General nose exam: No nasal polyps present and No nasal discharge present Face and sinus: Yes sinuses nontender Mouth: oropharynx normal Throat: Yes posterior oropharynx normal Eyes General: appearance normal, both eyes and all related structures Neck Neck: Yes normal visual inspection, Yes no lymphadenopathy, Yes trachea midline and Yes no JVD Thyroid: Thyroid normal Chest Chest palpation & inspection: normal inspection of the chest, normal palpation of entire chest wall and no tenderness Resp Other: Percussion note is resonant, breath sounds are distant but equal on both sides with prolonged expiratory phase. He has no audible wheezes or rhonchi. Cardio Palpation: normal PMI Rate: regular rate Rhythm: regular rhythm Heart sounds: no gallops and no murmurs GI Palpation (GI): Soft to palpation, nontender, No hepatosplenomegaly present and no masses Auscultation: normal bowel sounds Back/Spine/Pelvis Thoracic/Lumbar Spine: thoracic and lumbar spine normal to inspection Skin General skin exam: no rashes or lesions noted Neuro General: patient oriented x3 and no focal motor deficits Cranial nerves: Yes CN's II-XII intact bilaterally Extrem General: Yes normal to inspection, Yes no clubbing, cyanosis or edema and Yes no calf tenderness Psych Appearance: grossly normal and well kempt Speech and movement: Normal speech and movement present Results Reviewed Results Reviewed: COMPLIANCE REPORT FOR THE LAST 30 NIGHTS REVIEWED. HE HAS USED 27/30 NIGHTS., 90% OF THE TIME AVERAGE USE IT PER NIGHT 5 HOURS 34 MINUTES. HE IS ONiVAPS MODE. RESIDUAL AHI ONLY 1.1. HE USES O2 2 L/MINUTE ALONG WITH THE IVAPS . Assessment & Plan Assessment & Plan (1) COPD (chronic obstructive pulmonary disease): Comment: COPD, IS SEVERE , BUT SEEMS TO BE CONTROLLED AND STABLE . Code(s): J44.9 - Chronic obstructive pulmonary disease, unspecified Category: Medical Plan: CONTINUE TRELEGY ELLIPTA 1 INHALATION DAILY. ALBUTEROL SOLUTION 2.5 MG IN THE NEBULIZER Q 6 HOURS P.R.N.. WHEN OUTDOORS HE MAY USE ALBUTEROL HFA 2 PUFFS Q 6 HOURS P.R.N. (2) Smoker: Comment: He has been a chronic smoker, still smoking 15-20 cigarettes a day . Code(s): F17.200 - Nicotine dependence, unspecified, uncomplicated Category: Social Hx Plan: Discussed with him about quitting smoking, he has a fixed habit and has hard time in quitting. I told him to at least cut down the number of cigarettes to 10, and then keep on trying to reduce. He is participating in annual lung screening program. (3) Obesity (BMI 30.0-34.9): Comment: CONTINUES TO BE MODERATELY OVERWEIGHT, HAS LOST A FEW LB SINCE LAST YEAR. Code(s): E66.9 - Obesity, unspecified Category: Medical Plan: Discussed about the weight and I stress that he should lose a few. More lb of weight (4) EFRAIN on CPAP: Comment: HE HAS CHRONIC EFRAIN/HYPOVENTILATION SYNDROME. WELL TREATED WITH HIS NONINVASIVE VENTILATORY SUPPORT AT NIGHT(IVAPS ) with nasal pillows. COMPLIANCE IS IMPROVED AND HE IS BENEFITING FROM THE USE OF VENTILATORY SUPPORT. Code(s): G47.33 - Obstructive sleep apnea (adult) (pediatric); Z99.89 - Dependence on other enabling machines and devices Category: Medical Plan: COMMENDED FOR GOOD COMPLIANCE AND ADVISED TO KEEP ON USING REGULARLY (5) Respiratory failure with hypoxia and hypercapnia: Comment: Has chronic COPD/EFRAIN/hypoventilation syndrome, It is well treated with IVAPS mode of ventilatory support. Also uses O2 2 L/minute at night along with the CPAP. Code(s): J96.91 - Respiratory failure, unspecified with hypoxia; J96.92 - Respiratory failure, unspecified with hypercapnia Category: Medical Plan: ADVISED TO CONTINUE USING OXYGEN 2 L/MINUTE, IF HE HAS SOME DISTRESS HE MAY INCREASE TO 2.5 L/MINUTE. Coding Level of Care Code Est Pt Level 4 (43435) Diagnoses COPD (chronic obstructive pulmonary disease) J44.9 Smoker F17.200 Obesity (BMI 30.0-34.9) E66.9 EFRAIN on CPAP G47.33; Z99.89 Respiratory failure with hypoxia and hypercapnia J96.91; J96.92
[2023-12-24 11:22] VITALS: BP 120/62; PULSE 93; O2SAT 94; BMI 29.4
== END 2023-12-24 11:42 | disposition home or self-care (01) ==
PROVIDERS: PCP Internal Medicine; Visit Provider Internal Medicine
DX: J44.9 Chronic obstructive pulmonary disease, unspecified (principal); F17.200 Nicotine dependence, unspecified, uncomplicated; E66.9 Obesity, unspecified; G47.33 Obstructive sleep apnea (adult) (pediatric); Z99.89 Dependence on other enabling machines and devices; J96.91 Respiratory failure, unspecified with hypoxia; J96.92 Respiratory failure, unspecified with hypercapnia
CPT/HCPCS: 99214

== ENCOUNTER → 2023-12-24 11:11 | Outpatient (BNVA) | payer OTHER, SELFPAY | PROVIDERS: PCP Internal Medicine; Visit Provider Internal Medicine | DX: G47.33 Obstructive sleep apnea (adult) (pediatric) (principal); J44.9 Chronic obstructive pulmonary disease, unspecified; J96.91 Respiratory failure, unspecified with hypoxia; J96.92 Respiratory failure, unspecified with hypercapnia; E66.9 Obesity, unspecified; F17.210 Nicotine dependence, cigarettes, uncomplicated; Z99.89 Dependence on other enabling machines and devices; Z68.29 Body mass index [BMI] 29.0-29.9, adult | CPT/HCPCS: 99212 ==

== ENCOUNTER 2024-04-30 10:54 | Outpatient (REF) | payer OTHER, SELFPAY | END 2024-04-30 10:55 | disposition home or self-care (01) | LOC: HO.LAB 10:54 | PROVIDERS: PCP Internal Medicine; Visit Provider Internal Medicine | DX: J44.9 Chronic obstructive pulmonary disease, unspecified (principal); E66.9 Obesity, unspecified; J96.91 Respiratory failure, unspecified with hypoxia; J96.92 Respiratory failure, unspecified with hypercapnia | CPT/HCPCS: 99212 ==

== ENCOUNTER 2024-04-30 10:54 | Outpatient (AMB) | payer OTHER, SELFPAY ==
[2024-04-30 10:59] VITALS: BP 124/60; PULSE 103; O2SAT 95; BMI 29.6
--- NOTE | 2024-04-30 10:59 | A.OFFVIS_ITS ---
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: No Allergies No Known Allergies [No Known Allergies*] Allergy (Unknown, Verified 04/30/24 12:13) Medication List - Last Reconciled 04/30/24 by Brennen Smith MD albuterol sulfate 2.5 mg (3 mL) inhalation Q6H PRN albuterol sulfate 90 mcg/actuation 2 puffs PO Q4-6H PRN 30 days aspirin 81 mg PO DAILY atorvastatin 20 mg PO DAILY docusate sodium 100 mg PO BID dulaglutide mg subcut QWEEK odobwmftsxs-gequshdia-zemhbuwl 200-62.5-25 mcg (Trelegy Ellipta) 1 ea inhalation DAILY 30 days lisinopril 5 mg PO DAILY magnesium gluconate 54 mg PO DAILY metformin ER 1,000 mg PO BID naloxone 4 mg/actuation 0 sprays intranasal nicotine (Nicotrol) 1 inh inhalation Q2-4H PRN 30 days oxycodone 20 mg PO Q4H PRN oxycodone ER 30 mg PO Q12H Do you need a note to return to daycare/school/sports/work: No HPI HPI Sleep apnea: Details: This 74 years old gentleman is a case of advanced chronic obstructive pulmonary disease and also continued smoking, with chronic respiratory failure/as well as obstructive sleep apnea. He is being treated with home respirator/IVAPS device. He uses it very regularly and sleeps good for at least 6 hours every night. He denies any issues with the mask or Respirator device. Has not been able to lose weight, because he is not walking or doing any exercise. STILL SMOKES 15 CIGARETTES A DAY. His COPD is controlled well with the use of Trelegy 1 inhalation daily and albuterol HFA or albuterol in the nebulizer p.r.n. Luckily he has had no respiratory infection in the last 4 months. [facility] Medical History Respiratory failure with hypoxia and hypercapnia Nocturnal hypoxemia Smoker COPD (chronic obstructive pulmonary disease) KRISTEN on CPAP Obesity (BMI 30.0-34.9) Social History Patient Tobacco Use Status: Current everyday Tobacco user Tobacco use type: Cigarette Cigarette Packs Per Day: 0.5 Cigarettes Per Day: 10 Years Smoked: 20+ years, could be a pack a day at times. Review of Systems Const All systems reviewed & are unremarkable except as noted in HPI and below Eyes Reports no additional complaints ENT Reports no additional complaints Card Denies chest pain, Denies irregular heart rhythm and Denies leg edema Resp Reports as per HPI GI Reports no additional complaints Reports no additional complaints Musc Reports back pain (Chronic, being treated with long-acting oxycodone) Skin/Breast Reports system reviewed and no additional complaints, except as documented Neuro Reports no additional complaints Psych Reports no additional complaints Endo Reports other (Being treated for type 2 diabetes mellitus and hyperlipidemia, hypothyroidi) Physical Exam Vital Signs: Last Vital Signs Pulse 103 H 04/30/24 10:59 BP 124/60 04/30/24 10:59 Pulse Ox 95 04/30/24 10:59 Oxygen Delivery Method Room Air 04/30/24 10:59 BMI result Body Mass Index 29.6 Const General: healthy appearing, comfortable, no acute distress, alert and awake Orientation/consciousness: patient oriented x3 HEENT Head: Yes normal to inspection General nose exam: No nasal polyps present and No nasal discharge present Face and sinus: Yes sinuses nontender Mouth: oropharynx normal Throat: Yes posterior oropharynx normal Eyes General: appearance normal, both eyes and all related structures Neck Neck: Yes normal visual inspection, Yes no lymphadenopathy, Yes trachea midline and Yes no JVD Thyroid: Thyroid normal Chest Chest palpation & inspection: normal inspection of the chest, normal palpation of entire chest wall and no tenderness Resp Other: Percussion note is resonant, breath sounds are distant but equal on both sides with prolonged expiratory phase. He has no audible wheezes or rhonchi. Cardio Palpation: normal PMI Rate: regular rate Rhythm: regular rhythm Heart sounds: no gallops and no murmurs GI Palpation (GI): Soft to palpation, nontender, No hepatosplenomegaly present and no masses Auscultation: normal bowel sounds Back/Spine/Pelvis Thoracic/Lumbar Spine: thoracic and lumbar spine normal to inspection Skin General skin exam: no rashes or lesions noted Neuro General: patient oriented x3 and no focal motor deficits Cranial nerves: Yes CN's II-XII intact bilaterally Extrem General: Yes normal to inspection, Yes no clubbing, cyanosis or edema and Yes no calf tenderness Psych Appearance: grossly normal and well kempt Speech and movement: Normal speech and movement present Results Reviewed Results Reviewed: Compliance for the last 30 nights. Is reviewed and he has used 28/30 nights with average use it per night 5 hours 11 minutes. Patient is being treated with iVAPS mode, because he has chronic respiratory failure. Pressure settings include EPAP 7 cm minimum pressure 6 cm maximum pressure 15 cm target heart rate 15 Residual AHI only 1.6 Assessment & Plan Assessment & Plan (1) COPD (chronic obstructive pulmonary disease): Comment: COPD, IS SEVERE , BUT SEEMS TO BE CONTROLLED AND STABLE WITH HIS CURRENT MEDICAL REGIMEN. Code(s): J44.9 - Chronic obstructive pulmonary disease, unspecified Category: Medical Plan: CONTINUE TRELEGY ELLIPTA. 1 INHALATION DAILY VENTOLIN 2 PUFFS. Q 6 HOURS P.R.N. ALTERNATIVELY MAY USE ALBUTEROL SOLUTION IN THE NEBULIZER Q 6 HOURS P.R.N.. (2) Obesity (BMI 30.0-34.9): Comment: CONTINUES TO BE MODERATELY OVERWEIGHT, HAS NOT BEEN ABLE TO LOSE MUCH WEIGHT, HE CAN NOT DO ANY EXERCISE. Code(s): E66.9 - Obesity, unspecified Category: Medical Plan: TALKED ABOUT THE WEIGHT AND ADVISED HIM TO AT LEAST CONTROL THE DIET. WILL BE DIFFICULT BECAUSE HE DOES NOT. HAVE MUCH SELF-CONTROL (3) Respiratory failure with hypoxia and hypercapnia: Comment: Has chronic COPD/KRISTEN/hypoventilation syndrome, It is well treated with IVAPS mode of ventilatory support. Also uses O2 2 L/minute at night along with the CPAP. Code(s): J96.91 - Respiratory failure, unspecified with hypoxia; J96.92 - Respiratory failure, unspecified with hypercapnia Category: Medical Plan: VENOUS BLOOD GAS STUDY, CBC ORDERED ADVISED TO CONTINUE USING THE iVAPS UNIT AT LEAST FOR 6 HOURS EVERY NIGHT, MAY ALSO USE FOR 1 OR 2 HOURS DURING THE DAYTIME. USE O2 2 L/MINUTE ALONG WITH THE RESPIRATOR. DURING THE DAYTIME TRY TO DO DEEP BREATHING EXERCISES WITH PURSED LIP TECHNIQUE. Orders: Orders Complete Blood Count Auto Diff Today J44.9 - Chronic obstructive pulmonary disease, unspecified, J96.91 - Respiratory failure, unspecified with hypoxia, J96.92 - Respiratory failure, unspecified with hypercapnia Venous Blood Gas Today J44.9 - Chronic obstructive pulmonary disease, unspecified, J96.91 - Respiratory failure, unspecified with hypoxia, J96.92 - Respiratory failure, unspecified with hypercapnia Coding Level of Care Code Est Pt Level 3 (22011) Diagnoses COPD (chronic obstructive pulmonary disease) J44.9 Obesity (BMI 30.0-34.9) E66.9 Respiratory failure with hypoxia and hypercapnia J96.91; J96.92
--- OUTSIDE RECORDS SUMMARY | 2024-04-30 12:11 | XMS_ITS | Data Portability ---
Author Organization [employer] [place] [facility] [employer] Address [address] [place] [id number] Care Team Providers Care Roll Form Operator Name Role Phone HIM ANDRIY OTHER Assessment Encounter Date Assessment Date Assessment LastModified by Organization Details LastModified Time 02/11/2024 02/11/2024 Evaluation in the field was performed by my quarry supervisor open pit colleague, as noted above, I provided real-time direction and supervision for this visit. This is a 73yo M requesting an evaluation and exam for approval of orthotic shoes. He has no medical complaints. Says he has paperwork he needs to be filled out for approval of these shoes but can't get in to see his doctor for a couple of months. PE: General: Awake & alert, NAD Respiratory: Chest rise equal bilat, no increased wob CV: Regular rate, normal peripheral perfusion Impression: Adult Health Examination Plan: -Asymptomatic male with no acute medical complaints -Pt requesting foot exam, paperwork to be filled out confirming within the past 6 months diabetic management plan, and follow up paperwork for shoe approval to be filled out by the same physician conducting the initial exam. See attached image of paperwork. -Pt informed this is not a task Johnie can do and that he will need to see his PCP in person. Disposition: Remain at home [email or web address] Not available 02/11/2024 16:32:06 Plan of Treatment Reminders Order Date Submit Date Provider Last Modified By Organization Details Last Modified Time Details Appointments None record ed. Lab None record ed. Referral None record ed. Procedures None record ed. Surgeries None record ed. Imaging None record ed. Medication Orders None record ed. Patient TargetsNo targets recorded. Patient InstructionsNo instructions recorded. Reason for Referral None Reported. Medical Equipment None Reported. Allergies No known drug allergies Medications Name Sig Start Date Stop Date Status Note LastModified by Organization Details LastModified Time Mag-G 27 mg magnesium (500 mg) tablet 2 TABLET BY MOUTH DAILY active Not Available Not Available Not Available atorvastatin 20 mg tablet TAKE 1 TABLET BY MOUTH DAILY active Not Available Not Available Not Available meloxicam 15 mg tablet TAKE 1 TABLET BY MOUTH EVERY DAY active Not Available Not Available No t Available OneTouch Ultra Test strips CHECK GLUCOSE THREE TIMES DAILY AND NEEDED FOR SIGNS AND SYMPTOMS OF HIGH OR LOW BLOOD GLUCOSE DIRECTED active Not Available Not Available No t Available docusate sodium 100 mg capsule TAKE 1 CAPSULE BY MOUTH TWICE DAILY NEEDED FOR CONSTIPATIO N active Not Available Not Available No t Available lisinopril 5 mg tablet TAKE 1 TABLET BY MOUTH DAILY active Not Available Not Available Not Available diazepam 10 mg tablet TAKE 1 TABLET BY MOUTH 1/2 HOUR PRIOR TO MRI DIRECTED. DO NOT DRIVE WHILE TAKING THIS MEDICATION active Not Available Not Available N ot Available albuterol sulfate HFA 90 mcg/actuatio n aerosol inhaler INHALE 2 PUFFS BY MOUTH EVERY 4 TO 6 HOURS NEEDED FOR WHEEZING active Not Available Not Available No t Available pioglitazone 30 mg tablet TAKE 1 TABLET BY MOUTH DAILY active Not Available Not Available Not Available hydromorphon e 4 mg tablet TAKE 1 TABLET BY MOUTH EVERY 8 HOURS FOR 7 DAYS active Not Available Not Available No t Available metformin ER 500 mg tablet,exten ded release 24 hr TAKE 2 TABLETS BY MOUTH TWICE DAILY active Not Available Not Available No t Available Alcohol Prep Pads WIPE FINGER WITH ALCOHOL PAD AND ALLOW TO FULLY DRY BEFORE CHECKING BLOOD SUGAR THREE TIMES DAILY AND NEEDED active Not Available Not Available No t Available pregabalin 50 mg capsule TAKE 1 CAPSULE BY MOUTH EVERY DAY AT BEDTIME active Not Available Not Available No t Available oxycodone 20 mg tablet TAKE 1 TABLET BY MOUTH EVERY 4 HOURS NEEDED FOR PAIN CHRONIC BACK PAIN. CONTRACT ON FILE active Not Available Not Available No t Available OxyContin 30 mg tablet,crush resistant,ex tended release TAKE 1 TABLET BY MOUTH EVERY 12 HOURS CHRONIC BACK PAIN. CONTRACT ON FILE active Not Available Not Available No t Available naloxone 4 mg/actuation nasal spray CALL 911. SPR CONTENTS OF ONE SPRAYER (0.1ML) INTO ONE NOSTRIL. REPEAT IN 2-3 MIN IF SYMPTOMS OF OPIOID EMERGENCY PERSIST, ALTERNATE NOSTRILS active Not Available Not Available No t Available OneTouch Ultra2 Meter CHECK GLUCOSE THREE TIMES DAILY AND NEEDED FOR SIGNS AND SYMPTOMS OF HIGH OR LOW BLOOD GLUCOSE DIRECTED active Not Available Not Available No t Available OneTouch Delica Plus Lancet 30 gauge CHECK GLUCOSE THREE TIMES DAILY AND NEEDED FOR SIGNS AND SYMPTOMS OF HIGH OR LOW BLOOD GLUCOSE DIRECTED active Not Available Not Available No t Available Trulicity 4.5 mg/0.5 mL subcutaneous pen injector ADMINISTER 4.5 MG UNDER THE SKIN EVERY WEEK. ROTATE INJECTION SITES active Not Available Not Available No t Available Trelegy Ellipta 200 mcg-62.5 mcg-25 mcg powder for inhalation INHALE 1 PUFF BY MOUTH DAILY FOR COPD active Not Available Not Available No t Available BinaxNOW COVID-19 Ag Self Test kit TEST DIRECTED TODAY active Not Available Not Available No t Available Ozempic 0.25 mg or 0.5 mg (2 mg/3 mL) subcutaneous pen injector INJECT 0.5MG UNDER THE SKIN EVERY WEEK ROTATE INJECTION SITES active Not Available Not Available No t Available Vitals Date Recorded Body weight Oxygen saturation Oxygen saturation in Arterial blood by Pulse oximetry Body height Body temperature Respiratory rate Heart rate Systolic blood pressure Diastolic blood pressure Provider Name and Address Organization Details Last Updated DateTime 4 09211.3 2 g 95 % 95 % 182.88 cm 98 [degF] 18 /min 91 /min 130 mm[Hg] 75 mm[Hg] Not Available [facility] - production 4 16:06:17 Social History None recorded. Functional Status None recorded. Mental Status None recorded. Family History Nothing Reported. Medical History No medical history recorded. Past Encounters Encounter ID Performer Location Encounter Start Date Encounter Closed Date Diagnosis/Indication Diagnosis SNOMED-CT Code Diagnosis ICD10 Code Diagnosis Note [id number] MD [facility] [address] [place] [id number] 02/11/2024 15:59:43 02/11/2024 20:52:14 Adult health examination 480816163 Z00.00 Health Concerns Section Related Observation LastModified by Organization Detai ls LastModified Time None Recorded Concern Status LastModified by Organization Details LastModified Time None Recorded Advance Directives Directive None Recorded Payers Encounter Date Sequence Insurance Name Policy Number Policy Matta Covered Member ID Matta Member ID Guarantor Name 02/11/2024 1 [facility] - DOS ON OR AFTER 2022 - DUAL ELIGIBLE - HALFWAY OPTIONS AND ONE CARE (MEDICARE REPLACEMENT/ADV ANTAGE - HMO) Salvador Mcginnis [id number] Salvador Wehr Notes Date Note Type Note Provider Name and Address Organization Details Recorded Time 02/11/2024 text/html [facility] Nurse Triage Notes (Effie Carlisle): Chief Complaints: Diabetes-related PMH: Diabetes Mellitus Type 2, Hypertension, Chronic Obstructive Pulmonary Disease (COPD) Comments: Needs a diabetic assessment prior to receiving diabetic shoes at [facility].Unable to get an appt with PCP until end of May and will not be able to get his diabetic shoes. Patient is not having any acute diabetic problems. Asymptomatic. Takes Trulicity once and week and Metformin daily. ................... ................... ................... ................... ................... ................... ................... ........ Courtesy Car Driver Note From Catia Lira: Sent to a call for a pt requesting a diabetic assessment. SC8 arrives on scene, pt is alert and oriented, airway is patent. Pt has no complaints. Pt requesting a diabetic eval so he can get medicare authorization for diabetic shoes. Pt states he has contacted his PCP and diabetic and is unable to get an appt until May or later. Pt is advised according to the requirements of documentation/desig n of this program, we are unable to do a diabetic assessment at home. Pt is also advised that documentation is supposed to be conducted by Dr that will follow up with pt's care. BP:130/75, P:91, RR:18, SpO2:95% RA, T:98.0; Head: unremarkable; Lung sounds: clear bilaterally; Abdomen: soft, non-tender, no distention; Back: unremarkable; Extremities: unremarkable; Skin: pink, warm, dry; C consulted and pt is advised to follow up with a contracts officer. If no contracts officer, follow up with PCP/diabetic . [place] talking with [facility] states pt has a contracts officer, and will follow up with contracts officer. Red flags discussed. Pt has no further questions. ................... ................... ................... ................... ................... ................... ................... ........ [facility] Consulted: Kar[address]ina St ................... ................... ................... ................... ................... ................... ................... ........ Disposition: Fulfilled Karolina St MD [address] [facility], [place], [address], [employer], BREEZY 02/11/2024 17:18:29
== END 2024-04-30 11:29 | disposition home or self-care (01) ==
PROVIDERS: PCP Internal Medicine; Visit Provider Internal Medicine
DX: J44.9 Chronic obstructive pulmonary disease, unspecified (principal); E66.9 Obesity, unspecified; J96.91 Respiratory failure, unspecified with hypoxia; J96.92 Respiratory failure, unspecified with hypercapnia
CPT/HCPCS: 99213

== ENCOUNTER 2024-08-17 11:07 | Outpatient (AMB) | payer OTHER, SELFPAY ==
[2024-08-17 11:14] VITALS: BP 112/52; PULSE 89; O2SAT 91; BMI 29.1
--- NOTE | 2024-08-17 11:14 | A.OFFVIS_ITS ---
Vital Signs 08/17/24 11:14 Height 6 ft Weight 214 lb 15.211 oz BMI 29.1 BP 112/52 L Blood Pressure Location Lt brachial Position Sitting Pulse 89 Pulse Source Pulse Oximeter Pulse Oximetry (%) 91 L Oxygen Delivery Method Room Air Intake Visit Reasons: sleep apnea Intake Note: pt is here for follow up and states he has been having some bad days with short of breath, he felt like he just couldn't breath. Coordinator Of Rehabilitation Services Required: No Allergies No Known Allergies [No Known Allergies*] Allergy (Unknown, Verified 08/17/24 11:29) Medication List - Last Reconciled 08/17/24 by Brennen Smith MD albuterol sulfate 90 mcg/actuation 2 puffs PO Q4-6H PRN 30 days albuterol sulfate 2.5 mg (3 mL) inhalation Q6H PRN aspirin 81 mg PO DAILY atorvastatin 20 mg PO DAILY docusate sodium 100 mg PO BID dulaglutide mg subcut QWEEK ohpvibpnrhj-fqtaqgjsv-vnshkwpy 200-62.5-25 mcg (Trelegy Ellipta) 1 ea inhalation DAILY 30 days lisinopril 5 mg PO DAILY magnesium gluconate 54 mg PO DAILY metformin ER 1,000 mg PO BID naloxone 4 mg/actuation 0 sprays intranasal nicotine (Nicotrol) 1 inh inhalation Q2-4H PRN 30 days oxycodone 20 mg PO Q4H PRN oxycodone ER 30 mg PO Q12H HPI HPI sleep apnea: Details: This 74 years old gentleman long-time smoker with advanced chronic obstructive pulmonary disease as well as obstructive sleep apnea comes for his the routine follow-up after 4 months. His breathing has been stable but very frequently he gets bouts of cough and chest congestion. Unfortunately he still smokes 10 cigarettes a day and has not been able. To quit completely He is a case of chronic respiratory failure as well obstructive sleep apnea, and is being treated with iVAPS , which he uses regularly every night sometime even during the daytime [facility] Medical History Respiratory failure with hypoxia and hypercapnia Nocturnal hypoxemia Smoker COPD (chronic obstructive pulmonary disease) EFRAIN on CPAP Obesity (BMI 30.0-34.9) Social History Patient Tobacco Use Status: Current everyday Tobacco user Tobacco use type: Cigarette Cigarette Packs Per Day: 0.5 Cigarettes Per Day: 10 Years Smoked: 20+ years, could be a pack a day at times. Review of Systems Const All systems reviewed & are unremarkable except as noted in HPI and below Eyes Reports no additional complaints ENT Reports no additional complaints Card Denies chest pain, Denies irregular heart rhythm and Denies leg edema Resp Reports as per HPI GI Reports no additional complaints Reports no additional complaints Musc Reports back pain (Chronic, being treated with long-acting oxycodone) Skin/Breast Reports system reviewed and no additional complaints, except as documented Neuro Reports no additional complaints Psych Reports no additional complaints Endo Reports other (Being treated for type 2 diabetes mellitus and hyperlipidemia, hypothyroidi) Physical Exam Vital Signs: Last Vital Signs Pulse 89 08/17/24 11:14 BP 112/52 L 08/17/24 11:14 Pulse Ox 91 L 08/17/24 11:14 Oxygen Delivery Method Room Air 08/17/24 11:14 BMI result Body Mass Index 29.1 Const General: healthy appearing, comfortable, no acute distress, alert and awake Orientation/consciousness: patient oriented x3 HEENT Head: Yes normal to inspection General nose exam: No nasal polyps present and No nasal discharge present Face and sinus: Yes sinuses nontender Mouth: oropharynx normal Throat: Yes posterior oropharynx normal Eyes General: appearance normal, both eyes and all related structures Neck Neck: Yes normal visual inspection, Yes no lymphadenopathy, Yes trachea midline and Yes no JVD Thyroid: Thyroid normal Chest Chest palpation & inspection: normal inspection of the chest, normal palpation of entire chest wall and no tenderness Resp Other: Percussion note is resonant, breath sounds are distant but equal on both sides with prolonged expiratory phase. He has no audible wheezes or rhonchi. Cardio Palpation: normal PMI Rate: regular rate Rhythm: regular rhythm Heart sounds: no gallops and no murmurs GI Palpation (GI): Soft to palpation, nontender, No hepatosplenomegaly present and no masses Auscultation: normal bowel sounds Back/Spine/Pelvis Thoracic/Lumbar Spine: thoracic and lumbar spine normal to inspection Skin General skin exam: no rashes or lesions noted Neuro General: patient oriented x3 and no focal motor deficits Cranial nerves: Yes CN's II-XII intact bilaterally Extrem General: Yes normal to inspection, Yes no clubbing, cyanosis or edema and Yes no calf tenderness Psych Appearance: grossly normal and well kempt Speech and movement: Normal speech and movement present Results Reviewed Results Reviewed: Compliance report for the last 30 nights is reviewed he has used 28/30 nights, average usage 5 hours 13 minutes. He is on iVAPs mode, with minimum PS 6 and maximum PS 15 target patient rate 15 setting Assessment & Plan Assessment & Plan (1) EFRAIN on CPAP: Comment: HE HAS CHRONIC EFRAIN/HYPOVENTILATION SYNDROME. WELL TREATED WITH HIS NONINVASIVE VENTILATORY SUPPORT AT NIGHT(IVAPS ) with nasal pillows. COMPLIANCE IS IMPROVED AND HE IS BENEFITING FROM THE USE OF VENTILATORY SUPPORT. Code(s): G47.33 - Obstructive sleep apnea (adult) (pediatric); Z99.89 - Dependence on other enabling machines and devices Category: Medical Plan: Commended for good compliance and encouraged to keep on using iVAPS every night (2) COPD (chronic obstructive pulmonary disease): Comment: COPD, IS SEVERE , BUT SEEMS TO BE CONTROLLED AND STABLE WITH HIS CURRENT MEDICAL REGIMEN. Explained to him that as long as he continues to smoke he is going to have frequent bouts of cough, He does not need to use any. antibiotics at this time Code(s): J44.9 - Chronic obstructive pulmonary disease, unspecified Category: Medical Plan: Trelegy Ellipta 1 inhalation daily. Albuterol HFA 2 puffs Q 4-6 hours p.r.n. Albuterol solution 2.5 mg 3 male in the nebulizer Q 4-6 hours p.r.n. when at home (3) Smoker: Comment: He has been a chronic smoker, still smoking 15-20 cigarettes a day . Claims that he has cut down to 10 cigarettes a day. Code(s): F17.200 - Nicotine dependence, unspecified, uncomplicated Category: Social Hx Plan: Had a long talk and stressed that he has to quit completely. May use nicotine lozenges or he can use Nicotrol vapes p.r.n.. He should continue to have annual lung scanning with LDCT. (4) Respiratory failure with hypoxia and hypercapnia: Comment: Has chronic COPD/EFRAIN/hypoventilation syndrome, It is well treated with IVAPS mode of ventilatory support. Also uses O2 2 L/minute at night along with the iVAPS Code(s): J96.91 - Respiratory failure, unspecified with hypoxia; J96.92 - Respiratory failure, unspecified with hypercapnia Category: Medical Plan: Continue above. May use O2 2 L/minute p.r.n. during the daytime (5) Obesity (BMI 30.0-34.9): Comment: CONTINUES TO BE MODERATELY OVERWEIGHT, HAS NOT BEEN ABLE TO LOSE MUCH WEIGHT, HE CAN NOT DO ANY EXERCISE. Code(s): E66.9 - Obesity, unspecified Category: Medical Plan: Discussed about his diet and need to walk daily. There is not much potential for him to lose weight.. Coding Level of Care Code Est Pt Level 4 (98144) Diagnoses EFRAIN on CPAP G47.33; Z99.89 COPD (chronic obstructive pulmonary disease) J44.9 Smoker F17.200 Respiratory failure with hypoxia and hypercapnia J96.91; J96.92 Obesity (BMI 30.0-34.9) E66.9
--- OUTSIDE RECORDS SUMMARY | 2024-08-17 12:45 | XMS_ITS | Data Portability ---
Author Organization [employer] [employer] [place] [facility] Address [address] [place] [phone] Care Team Providers Care Cleaner And Polisher Name Role Phone HIM ANDRIY OTHER Assessment Encounter Date Assessment Date Assessment LastModified by Organization Details LastModified Time 02/11/2024 02/11/2024 Evaluation in the field was performed by my dairy powder mixer operator colleague, as noted above, I provided real-time [...] Address Organization Details Last Updated DateTime 4 43965.3 2 g 95 % 95 % 182.88 [...] SNOMED-CT Code Diagnosis ICD10 Code Diagnosis Note [id number] MD Main - [facility] [address] [place] [id number] 02/11/2024 15:59:43 02/11/2024 20:52:14 Adult health examination [id number] Z00.00 Health Concerns Section Related Observation LastModified by Organization Detai ls LastModified Time None Recorded Concern Status LastModified by Organization Details LastModified Time None Recorded Advance Directives Directive None Recorded Payers Insurance Date Sequence Insurance Name Policy Number Policy Matta Covered Member ID Matta Member ID Guarantor Name 02/11/2024 1 [facility] - DOS ON OR AFTER 2022 - DUAL ELIGIBLE - SNF OPTIONS AND ONE CARE (MEDICARE REPLACEMENT/ADV ANTAGE - HMO) Salvador Mcginnis [id number] Salvador Mcginnis Notes Date Note Type Note Provider Name and Address Organization Details Recorded Time 02/11/2024 text/html CRC Nurse Triage Notes (Effie Carlisle): Chief Complaints: Diabetes-related PMH: Diabetes Mellitus Type 2, Hypertension, Chronic Obstructive Pulmonary Disease (COPD) Comments: Needs a diabetic assessment prior to receiving diabetic shoes at [employer].Unable to get an appt with PCP until end of May and will not be able to get his diabetic shoes. Patient is not having any acute diabetic problems. Asymptomatic. Takes Trulicity once and week and Metformin daily. ................... ................... ................... ................... ................... ................... ................... ........ Vehicle Service Attendant Note From Catia Lira: Sent to a call for a pt requesting a diabetic assessment. SC8 arrives on scene, pt is alert and oriented, airway is patent. Pt has no complaints. Pt requesting a diabetic eval so he can get medicare authorization for diabetic shoes. Pt states he has contacted his PCP and diabetic Dr and is unable to get an appt [...] unremarkable; Extremities: unremarkable; Skin: pink, warm, dry; [facility] [place] and pt is advised to follow up with a wirer street light. If no wirer street light, follow up with PCP/diabetic Dr. After talking with [facility], states pt has a wirer street light, and will follow up with wirer street light. Red flags discussed. Pt has no further questions. ................... ................... ................... ................... ................... ................... ................... ........ [facility] [place] Consulted: Karolina St ................... ................... ................... ................... ................... ................... ................... ........ Disposition: Fulfilled Karolina St MD [address] [facility],[address], [place], [address], [employer] [facility] [employer] 02/11/2024 17:18:29
== END 2024-08-17 11:43 | disposition home or self-care (01) ==
LOC: HO.HPS 11:07
PROVIDERS: PCP Internal Medicine; Visit Provider Internal Medicine
DX: G47.33 Obstructive sleep apnea (adult) (pediatric) (principal); Z99.89 Dependence on other enabling machines and devices; J44.9 Chronic obstructive pulmonary disease, unspecified; F17.200 Nicotine dependence, unspecified, uncomplicated; J96.91 Respiratory failure, unspecified with hypoxia; J96.92 Respiratory failure, unspecified with hypercapnia; E66.9 Obesity, unspecified
CPT/HCPCS: 99214

== ENCOUNTER → 2024-08-17 11:07 | Outpatient (BNVA) | payer OTHER, SELFPAY | PROVIDERS: PCP Internal Medicine; Visit Provider Internal Medicine | DX: G47.33 Obstructive sleep apnea (adult) (pediatric) (principal); E66.9 Obesity, unspecified; J96.91 Respiratory failure, unspecified with hypoxia; J96.92 Respiratory failure, unspecified with hypercapnia; F17.200 Nicotine dependence, unspecified, uncomplicated; J44.9 Chronic obstructive pulmonary disease, unspecified | CPT/HCPCS: 99212 ==

== ENCOUNTER 2024-10-05 09:26 | Outpatient (REF) | payer OTHER, SELFPAY ==
--- NOTE | ~2024-10-05 | XR_ITS ---
EXAMINATION: XR CHEST CLINICAL INFORMATION: J44.9 - Chronic obstructive pulmonary disease, unspecified COMPARISON: None available. TECHNIQUE: 2 views of the chest were obtained. FINDINGS: No significant abnormality is noted involving the heart, lungs, mediastinum, bony thorax or soft tissues. XR/XR chest 2V IMPRESSION: Unremarkable chest examination. Electronically signed by: Everette Whitt MD 10/05/2024 11:53 AM EDT
[2024-10-05 10:43] LABS: MANUAL DIFF FLAG NO
[2024-10-05 10:51] LABS: Venous Blood Gas Refer to POC result
[2024-10-05 10:52] LABS: VBG HCO3 39 mmol/L (22-26); VBG O2 % Saturation 56.0 %
[2024-10-05 11:50] LABS: Hematocrit 43.2 % (42.0-52.0); Hemoglobin 13.8 g/dl (14.0-18.0); Imm Gran Abs Auto 0.02 X10*3/uL (0.00-0.03); Imm Gran Pct Auto 0.3 % (0.0-0.4); Lymphocytes Absolute Auto 1.3 X10*3/uL (1.2-4.9); Mean Corpuscular HGB Conc 31.9 g/dl (31.0-36.0); Mean Corpuscular Hemoglobin 28.3 pg (27.0-33.0); Mean Corpuscular Volume 88.5 fL (80.0-98.0); NRBC Abs Auto 0.000 X10*3/uL (0.0-0.012); NRBC Pct Auto 0.0 /100WBC (0.0-0.2); Platelet Count 179 X10*3/uL (160-400); Red Blood Count 4.88 X10*6/uL (4.60-5.80); White Blood Count 6.1 X10*3/uL (4.8-10.8)
[2024-10-05 12:26] LABS: Anion Gap 11 (12-20); Carbon Dioxide 33 mmol/L (22-29); Chloride 98 mmol/L (96-108); Potassium 5.2 mmol/L (3.3-5.1); Sodium 137 mmol/L (135-145)
== END 2024-10-05 09:27 | disposition home or self-care (01) ==
LOC: HO.XRAY 09:26
PROVIDERS: PCP Internal Medicine; Visit Provider Internal Medicine
DX: J44.9 Chronic obstructive pulmonary disease, unspecified (principal); J96.91 Respiratory failure, unspecified with hypoxia; J96.92 Respiratory failure, unspecified with hypercapnia; F17.200 Nicotine dependence, unspecified, uncomplicated; G47.33 Obstructive sleep apnea (adult) (pediatric); Z99.89 Dependence on other enabling machines and devices; Z79.899 Other long term (current) drug therapy
CPT/HCPCS: 36415; 71046; 80051; 82803; 85025; 94010; 94618; 99212

== ENCOUNTER 2024-10-05 09:26 | Outpatient (AMB) | payer OTHER, SELFPAY ==
[2024-10-05 09:28] VITALS: BP 110/58; PULSE 90; O2SAT 90; BMI 29.3
--- NOTE | 2024-10-05 09:28 | A.OFFVIS_ITS ---
Vital Signs 10/05/24 09:28 Height 6 ft Weight 216 lb 0.848 oz BMI 29.3 BP 110/58 L Blood Pressure Location Lt brachial Position Sitting Pulse 90 Pulse Source Pulse Oximeter Pulse Oximetry (%) 90 L Oxygen Delivery Method Room Air Intake Visit Reasons: short of breath Intake Note: pt is here for sick visit, for short of breath that has increased for a couple weeks, doing anything is not good, walking to car Marine Mechanic Required: No Allergies No Known Allergies (No Known Allergies*) Allergy (Unknown, Verified 10/05/24 09:35) Medication List - Last Reconciled 10/05/24 by Brennen Smith MD albuterol sulfate 90 mcg/actuation 2 puffs PO Q4-6H PRN 30 days albuterol sulfate 2.5 mg (3 mL) inhalation Q6H PRN aspirin 81 mg PO DAILY atorvastatin 20 mg PO DAILY docusate sodium 100 mg PO BID dulaglutide mg subcut QWEEK xbjnlupyvzg-vsturaydd-rszpqgvf 200-62.5-25 mcg (Trelegy Ellipta) 1 ea inhalation DAILY 30 days lisinopril 5 mg PO DAILY magnesium gluconate 54 mg PO DAILY metformin ER 1,000 mg PO BID naloxone 4 mg/actuation 0 sprays intranasal nicotine (Nicotrol) 1 inh inhalation Q2-4H PRN 30 days oxycodone 20 mg PO Q4H PRN oxycodone ER 30 mg PO Q12H PFSH Medical History Respiratory failure with hypoxia and hypercapnia Nocturnal hypoxemia Smoker COPD (chronic obstructive pulmonary disease) EFRAIN on CPAP Obesity (BMI 30.0-34.9) Social History Patient Tobacco Use Status: Current everyday Tobacco user Tobacco use type: Cigarette Cigarette Packs Per Day: 0.5 Cigarettes Per Day: 10 Years Smoked: 20+ years, could be a pack a day at times. Physical Exam Vital Signs: Last Vital Signs Pulse 90 10/05/24 09:28 BP 110/58 L 10/05/24 09:28 Pulse Ox 90 L 10/05/24 09:28 Oxygen Delivery Method Room Air 10/05/24 09:28 BMI result Body Mass Index 29.3 Office Procedures 6 Minute Walk Time:: 09:59 SPO2 % at rest: 93 Pulse at rest: 86 SPO2 % during excercise: 87 Pulse during excercise: 96 SPO2 % after excercise: 95 Pulse after excercise: 110 Distance in yards walked: 100 Matilda Score: 7 Performance Observations:: Patient walked unassisted on level ground at a moderate pace maintaining O2 saturation of 89-91 pulse 96-100. After 3 minutes O2 saturation dropped to 87% with pulse of 96. O2 applied at 2L via nasal cannula. Completed walk with O2 saturation of 94-96% and pulse of 110-116. Patient does become dyspneic with walking and improves with the use of supplemental O2 at 2L. 72429 - 6 Minute Walk Spirometry Testing Spirometry Comments: In office spirometry completed with results given to Dr Smith. 60998- Spirometry Assessment & Plan Assessment & Plan Orders: Orders XR chest 2V Today F17.200 - Nicotine dependence, unspecified, uncomplicated, J44.9 - Chronic obstructive pulmonary disease, unspecified, J96.91 - Respiratory failure, unspecified with hypoxia, J96.92 - Respiratory failure, unspecified with hypercapnia Venous Blood Gas Today F17.200 - Nicotine dependence, unspecified, uncomplicated, J44.9 - Chronic obstructive pulmonary disease, unspecified, J96.91 - Respiratory failure, unspecified with hypoxia, J96.92 - Respiratory failure, unspecified with hypercapnia, R06.09 - Other forms of dyspnea Complete Blood Count Auto Diff Today F17.200 - Nicotine dependence, unspecified, uncomplicated, J44.9 - Chronic obstructive pulmonary disease, unspecified, J96.91 - Respiratory failure, unspecified with hypoxia, J96.92 - Respiratory failure, unspecified with hypercapnia, R06.09 - Other forms of dyspnea Electrolytes Today J44.9 - Chronic obstructive pulmonary disease, unspecified, J96.91 - Respiratory failure, unspecified with hypoxia, J96.92 - Respiratory failure, unspecified with hypercapnia AMB 6 minute walk Today J44.9 - Chronic obstructive pulmonary disease, unspecified, J96.91 - Respiratory failure, unspecified with hypoxia, J96.92 - Respiratory failure, unspecified with hypercapnia AMB Spirometry Testing Today J44.9 - Chronic obstructive pulmonary disease, unspecified, J96.91 - Respiratory failure, unspecified with hypoxia, J96.92 - Respiratory failure, unspecified with hypercapnia Coding CPT Codes Coding ([id number]) Spirometry - CPT: 82074- Spirometry ([id number])
--- NOTE | 2024-10-05 09:45 | A.OFFVIS_ITS ---
Vital Signs 10/05/24 09:28 Height 6 ft Weight 216 lb 0.848 oz BMI 29.3 BP 110/58 L Blood Pressure Location Lt brachial Position Sitting Pulse 90 Pulse Source Pulse Oximeter Pulse Oximetry (%) 90 L Oxygen Delivery Method Room Air Intake Visit Reasons: short of breath Allergies No Known Allergies (No Known Allergies*) Allergy (Unknown, Verified 10/05/24 09:35) Medication List - Last Reconciled 10/05/24 by Brennen Smith MD albuterol sulfate 90 mcg/actuation 2 puffs PO Q4-6H PRN 30 days albuterol sulfate 2.5 mg (3 mL) inhalation Q6H PRN aspirin 81 mg PO DAILY atorvastatin 20 mg PO DAILY docusate sodium 100 mg PO BID dulaglutide mg subcut QWEEK lyljeycluph-esbavmvnt-duyallfm 200-62.5-25 mcg (Trelegy Ellipta) 1 ea inhalation DAILY 30 days lisinopril 5 mg PO DAILY magnesium gluconate 54 mg PO DAILY metformin ER 1,000 mg PO BID naloxone 4 mg/actuation 0 sprays intranasal nicotine (Nicotrol) 1 inh inhalation Q2-4H PRN 30 days oxycodone 20 mg PO Q4H PRN oxycodone ER 30 mg PO Q12H Do you need a note to return to daycare/school/sports/work: No HPI HPI short of breath: Details: This 74 years old gentleman, is a known case of severe chronic obstructive pulmonary disease. He has been on maximum medical treatment including Trelegy Ellipta, DuoNeb updrafts , nocturnal oxygen, along with CPAP ( iVAPS ) x 12 years . Continues to smoke, currently up to 1 pack a day. Denies any recent respiratory infection. Main problem is that he is having increased shortness of breath on minimal exertion like walking on the level ground 1 block, at a fast pace. Also feels somewhat congested in the upper chest, has increased cough and has hard time to expectorates. He was called to come in today to have a thorough pulmonary evaluation. [facility] Medical History (Updated 10/05/24 @ 12:16 by Brennen Smith MD) Dyspnea on exertion Respiratory failure with hypoxia and hypercapnia Nocturnal hypoxemia Smoker COPD (chronic obstructive pulmonary disease) EFRAIN on CPAP Obesity (BMI 30.0-34.9) Social History Patient Tobacco Use Status: Current everyday Tobacco user Tobacco use type: Cigarette Cigarette Packs Per Day: 0.5 Cigarettes Per Day: 10 Years Smoked: 20+ years, could be a pack a day at times. Review of Systems Const All systems reviewed & are unremarkable except as noted in HPI and below Eyes Reports no additional complaints ENT Reports no additional complaints Card Denies chest pain, Denies irregular heart rhythm and Denies leg edema Resp Reports as per HPI GI Reports no additional complaints Reports no additional complaints Musc Reports back pain (Chronic, being treated with long-acting oxycodone) Skin/Breast Reports system reviewed and no additional complaints, except as documented Neuro Reports no additional complaints Psych Reports no additional complaints Endo Reports other (Being treated for type 2 diabetes mellitus and hyperlipidemia, hypothyroidi) Physical Exam Vital Signs: Last Vital Signs Pulse 90 10/05/24 09:28 BP 110/58 L 10/05/24 09:28 Pulse Ox 90 L 10/05/24 09:28 Oxygen Delivery Method Room Air 10/05/24 09:28 BMI result Body Mass Index 29.3 Const General: healthy appearing, comfortable, no acute distress, alert and awake Orientation/consciousness: patient oriented x3 HEENT Head: Yes normal to inspection General nose exam: No nasal polyps present and No nasal discharge present Face and sinus: Yes sinuses nontender Mouth: oropharynx normal Throat: Yes posterior oropharynx normal Eyes General: appearance normal, both eyes and all related structures Neck Neck: Yes normal visual inspection, Yes no lymphadenopathy, Yes trachea midline and Yes no JVD Thyroid: Thyroid normal Chest Chest palpation & inspection: normal inspection of the chest, normal palpation of entire chest wall and no tenderness Resp Other: Percussion note is resonant, breath sounds are distant but equal on both sides with prolonged expiratory phase. He sounds raspy , in the upper airways but does not have any audible wheezes rhonchi or crepitations. Cardio Palpation: normal PMI Rate: regular rate Rhythm: regular rhythm Heart sounds: no gallops and no murmurs GI Palpation (GI): Soft to palpation, nontender, No hepatosplenomegaly present and no masses Auscultation: normal bowel sounds Back/Spine/Pelvis Thoracic/Lumbar Spine: thoracic and lumbar spine normal to inspection Skin General skin exam: no rashes or lesions noted Neuro General: patient oriented x3 and no focal motor deficits Cranial nerves: Yes CN's II-XII intact bilaterally Extrem General: Yes normal to inspection, Yes no clubbing, cyanosis or edema and Yes no calf tenderness Psych Appearance: grossly normal and well kempt Speech and movement: Normal speech and movement present Office Procedures 6 Minute Walk Time:: 09:59 SPO2 % at rest: 93 Pulse at rest: 86 SPO2 % during excercise: 87 Pulse during excercise: 96 SPO2 % after excercise: 95 Pulse after excercise: 110 Distance in yards walked: 100 Matilda Score: 7 Performance Observations:: Patient walked unassisted on level ground at a moderate pace maintaining O2 saturation of 89-91 pulse 96-100. After 3 minutes O2 saturation dropped to 87% with pulse of 96. O2 applied at 2L via nasal cannul a. Completed walk with O2 saturation of 94-96% and pulse of 110-116. Patient does become dyspneic with walking and improves with the use of supplemental O2 at 2L. 16999 - 6 Minute Walk Spirometry Testing Spirometry Comments: In office spirometry completed with results given to Dr Smith. 20820- Spirometry Results Reviewed Results Reviewed: SPIROMETRY : C/W SEVERE OBSTRUCTIVE AIRWAY DISORDER. CHEST XRAY : UNREMARKABLE VENOUS BLOOD GASES : PH 7.37 PCO2 66 6 MONUTES WALK TEST ON JACKELIN AIR : DESATURATES ON WALKING AND REQUIRED O2 2 L/MINUTE TO KEEP O2 SAT ABOVE 90% Assessment & Plan Assessment & Plan (1) COPD (chronic obstructive pulmonary disease): Comment: COPD, IS SEVERE , BUT has been CONTROLLED AND STABLE WITH HIS CURRENT MEDICAL REGIMEN. However now for the past many weeks he is having increased shortness of breath on minimal exertion. There has been no acute respiratory infection, but he does seem to have upper respiratory congestion. UNFORTUNATELY, HE CONTINUES TO SMOKE, ACTUALLY INCREASED TO 1 PACK A DAY, AND HAS NOT BEEN ABLE TO QUIT, EVEN WITH THE USE OF NICOTINE LOZENGES. Code(s): J44.9 - Chronic obstructive pulmonary disease, unspecified Category: Medical Plan: PLAIN CHEST X-RAY TO MAKE SURE THERE IS NO OBVIOUS ABNORMALITY---UNREMARKABLE CONTINUE TRELEGY ELLIPTA. 1 INHALATION DAILY DUONEB UPDRAFTS WITH IPRATROPIUM PLUS ALBUTEROL SOLUTION Q 6 HOURS WHILE AWAKE. I A.M. GOING TO ADD AZITHROMYCIN 250 MG 3 DAYS A WEEK (2) Smoker: Comment: He has been a chronic smoker, still smoking 20 cigarettes a day . THIS IS INCREASED FROM HALF A PACK THAT HE CLAIMED ON THE LAST VISIT. Code(s): F17.200 - Nicotine dependence, unspecified, uncomplicated Category: Social Hx Plan: PATIENT IS WELL AWARE OF THE RISK OF CONTINUED SMOKING, I HAVE DISCUSSED WITH HIM AGAIN, HE IS TRYING TO USE NICOTINE LOZENGES. THE GOAL IS TO QUIT COMPLETELY * HE SAY IS HE GOES TO [facility] FOR ANNUAL LUNG SCAN (3) Respiratory failure with hypoxia and hypercapnia: Comment: Has chronic COPD/EFRAIN/hypoventilation syndrome, VENOUS BLOOD GAS STUDY SHOWS THAT HE HAS CHRONIC COMPENSATED HYPERCAPNIC RESP . FAILURE PCO2 66 BEING TREATED WITH IVAPS MODE OF VENTILATORY SUPPORT, SINCE ABOUT 12 YEARS AGO, WHEN HE HAD CPAP TITRATION STUDY AT [facility] Also uses O2 2 L/minute at night along with the iVAPS Code(s): J96.91 - Respiratory failure, unspecified with hypoxia; J96.92 - Respiratory failure, unspecified with hypercapnia Category: Medical Plan: VENOUS BLOOD GAS STUDYC/W CHRONIC, ,COMPENSATED HYPERCAPNIC RESPIRATORY FAILURE ADVISED TO CONTINUE USING THE iVAPS EVERY NIGHT, FOR AT LEAST 6 HOURS EVERY NIGHT WITH O2 2 L/MINUTE. ALSO ADVISED TO DO DEEP BREATHING EXERCISES WITH PURSED LIP TECHNIQUE 2 OR 3 TIMES A DAY (4) EFRAIN on CPAP: Comment: HE HAS CHRONIC EFRAIN/HYPOVENTILATION SYNDROME. WELL TREATED WITH HIS NONINVASIVE VENTILATORY SUPPORT AT NIGHT(IVAPS ) with nasal pillows. COMPLIANCE IS IMPROVED AND HE IS BENEFITING FROM THE USE OF VENTILATORY SUPPORT. Code(s): G47.33 - Obstructive sleep apnea (adult) (pediatric); Z99.89 - Dependence on other enabling machines and devices Category: Medical Plan: ADVISED TO CONTINUE USING THE CPAP WITH iVAPS MODE, AT LEAST FOR 6 HOURS EVERY NIGHT. Orders: Orders XR chest 2V Today F17.200 - Nicotine dependence, unspecified, uncomplicated, J44.9 - Chronic obstructive pulmonary disease, unspecified, J96.91 - Respiratory failure, unspecified with hypoxia, J96.92 - Respiratory failure, unspecified with hypercapnia Venous Blood Gas Today F17.200 - Nicotine dependence, unspecified, uncomplicated, J44.9 - Chronic obstructive pulmonary disease, unspecified, J96.91 - Respiratory failure, unspecified with hypoxia, J96.92 - Respiratory failure, unspecified with hypercapnia, R06.09 - Other forms of dyspnea Complete Blood Count Auto Diff Today F17.200 - Nicotine dependence, unspecified, uncomplicated, J44.9 - Chronic obstructive pulmonary disease, unspecified, J96.91 - Respiratory failure, unspecified with hypoxia, J96.92 - Respiratory failure, unspecified with hypercapnia, R06.09 - Other forms of dyspnea Electrolytes Today J44.9 - Chronic obstructive pulmonary disease, unspecified, J96.91 - Respiratory failure, unspecified with hypoxia, J96.92 - Respiratory failure, unspecified with hypercapnia AMB 6 minute walk Today J44.9 - Chronic obstructive pulmonary disease, unspecified, J96.91 - Respiratory failure, unspecified with hypoxia, J96.92 - Respiratory failure, unspecified with hypercapnia AMB Spirometry Testing Today J44.9 - Chronic obstructive pulmonary disease, unspecified, J96.91 - Respiratory failure, unspecified with hypoxia, J96.92 - Respiratory failure, unspecified with hypercapnia Medications: New azithromycin start on day 2 of therapy 250 mg PO 3XW 13 tabs 3RF COPD/Bronchitis 30 days Coding Level of Care Code Est Pt Level 4 (66381) Diagnoses COPD (chronic obstructive pulmonary disease) J44.9 Smoker F17.200 Respiratory failure with hypoxia and hypercapnia J96.91; J96.92 EFRAIN on CPAP G47.33; Z99.89 CPT Codes Coding ([id number]) Spirometry - CPT: 32245- Spirometry ([id number])
--- OUTSIDE RECORDS SUMMARY | 2024-10-05 10:14 | XMS_ITS | Data Portability ---
Author Organization [employer] [facility] [place] [facility] Address [address] [place] [address] Care Team Providers Care Health And Safety Manager Name Role Phone HIM CCA OTHER Assessment Encounter Date Assessment Date Assessment LastModified by Organization Details LastModified Time 02/11/2024 02/11/2024 Evaluation in the field was performed by my senior talent acquisition specialist colleague, as noted above, I provided real-time [...] Body temperature Respiratory rate Heart rate Systolic And Diastolic Provider Name and Address Organization Details Last Updated DateTime 4 66582.3 2 g 95 % 95 % 182.88 cm 98 [degF] 18 /min 91 /min 130/75 mm[Hg] Not Available [facility] - [facility] 4 16:06:17 Social History None recorded. Functional Status None recorded. Mental Status None recorded. Family History Nothing Reported. Medical History No medical history recorded. Past Encounters Encounter ID Performer Location Encounter Start Date Encounter Closed Date Diagnosis/Indication Diagnosis SNOMED-CT Code Diagnosis ICD10 Code Diagnosis Note [id number] MD Main - [facility] [address] [place] [phone] 02/11/2024 15:59:43 02/11/2024 20:52:14 Adult health examination 458920082 Z00.00 Health Concerns Section Related Observation LastModified by Organization Detai ls LastModified Time None Recorded Concern Status LastModified by Organization Details LastModified Time None Recorded Advance Directives Directive None Recorded Payers Insurance Date Sequence Insurance Name Policy Number Policy Matta Covered Member ID Matta Member ID Guarantor Name 02/11/2024 1 [facility] - DOS ON OR AFTER 2022 - DUAL ELIGIBLE - CUSTODIAL OPTIONS AND ONE CARE (MEDICARE REPLACEMENT/ADV ANTAGE - HMO) Salvador Mcginnis [id number] Salvador Mcginnis
[2024-10-05 10:20] VITALS: PULSE 86; O2SAT 93
== END 2024-10-05 10:23 | disposition home or self-care (01) ==
PROVIDERS: PCP Internal Medicine; Visit Provider Internal Medicine
DX: J44.9 Chronic obstructive pulmonary disease, unspecified (principal); F17.200 Nicotine dependence, unspecified, uncomplicated; J96.91 Respiratory failure, unspecified with hypoxia; J96.92 Respiratory failure, unspecified with hypercapnia; G47.33 Obstructive sleep apnea (adult) (pediatric); Z99.89 Dependence on other enabling machines and devices
CPT/HCPCS: 94010; 94618; 99214

== ENCOUNTER → 2024-10-05 10:43 | Outpatient (BNV) | payer OTHER, SELFPAY | PROVIDERS: PCP Internal Medicine; Visit Provider Radiology Diagnostic Radiology | DX: J44.9 Chronic obstructive pulmonary disease, unspecified (principal) | CPT/HCPCS: 71046 ==

== ENCOUNTER 2024-10-22 09:39 | Outpatient (REF) | payer OTHER, SELFPAY ==
--- NOTE | ~2024-10-22 | XR_ITS ---
EXAMINATION: XR CERVICAL SPINE CLINICAL INFORMATION: M54.2 - Cervicalgia COMPARISON: None available. TECHNIQUE: 4 views of the cervical spine were obtained. FINDINGS: Evaluation of the swimmer's view is partially limited due to overlapping structures. Straightening of the cervical lordosis. Minimal anterolisthesis of C2 on C3 and C4 on C5 on the swimmer's view. No obvious compression fracture. At least partial fusion of the posterior elements of the second-fourth vertebrae. Metallic structures in the posterior lower cervical spine. Disc space narrowing at multiple levels, more pronounced at C3-C4 and C5-C6. Bridging marginal osteophytes at multiple levels. Odontoid process appears well aligned with the lateral masses of C1. XR/XR cervical spine 3V IMPRESSION: Moderate degree of multilevel degenerative changes. Electronically signed by: Mac Nicole MD 10/22/2024 01:45 PM EDT
== END 2024-10-22 09:40 | disposition home or self-care (01) ==
LOC: HO.HOSX 09:39
PROVIDERS: PCP Internal Medicine; Visit Provider Physical Medicine & Rehabilitation
DX: M54.12 Radiculopathy, cervical region (principal); M54.2 Cervicalgia; Z98.890 Other specified postprocedural states; M54.50 Low back pain, unspecified; G89.29 Other chronic pain; Z79.899 Other long term (current) drug therapy; Z79.82 Long term (current) use of aspirin
CPT/HCPCS: 72040; 99202

== ENCOUNTER 2024-10-22 09:39 | Outpatient (AMB) | payer OTHER, SELFPAY ==
[2024-10-22 09:41] VITALS: BMI 29.8
--- NOTE | 2024-10-22 09:41 | A.OFFVIS_ITS ---
Vital Signs 10/22/24 09:41 Height 5 ft 11 in Weight 214 lb BMI 29.8 Intake Visit Reasons: OV- New Patient for Neck and back Pain Intake Note: Salvador is a 74 year old male who presents today as a new patient for Neck and lower back pain. Patient was referred by CODY on 06/26/24 at their visit he was seen for a mass on the left shoulder, had a X ray and MRI done. Patient reported that the left side of his neck is sore and lower back. PMH Sciatica nerve disorder. At today's visit he states that he has had lower back pain for the past 13 years. He states that his main concern is the neck pain. He reports that in 04/2023 he had neck surgery done at [facility]. Patient reports bilateral neck pain that radiates down to the arms. He states that he has constant numbness in both hands to the point of loosing feeling in his fingers. He states that he did attend physical therapy with no relief and he notes that he has never tried injections. Allergies No Known Allergies (No Known Allergies*) Allergy (Unknown, Verified 10/22/24 09:46) Medication List - Last Reconciled 10/22/24 by Sarahy Sommers MD albuterol sulfate 90 mcg/actuation 2 puffs PO Q4-6H PRN 30 days albuterol sulfate 2.5 mg (3 mL) inhalation Q6H PRN aspirin 81 mg PO DAILY atorvastatin 20 mg PO DAILY azithromycin 250 mg PO 3XW 30 days docusate sodium 100 mg PO BID dulaglutide mg subcut QWEEK bcurfegwuid-wafvbossp-duhunvej 200-62.5-25 mcg (Trelegy Ellipta) 1 ea inhalation DAILY 30 days lisinopril 5 mg PO DAILY magnesium gluconate 54 mg PO DAILY metformin ER 1,000 mg PO BID naloxone 4 mg/actuation 0 sprays intranasal nicotine (Nicotrol) 1 inh inhalation Q2-4H PRN 30 days oxycodone 20 mg PO Q4H PRN oxycodone ER 30 mg PO Q12H HPI Comments Details: History of right RTC surgery 15-20 years ago. Cervial surgery by Dr. Bermeo 04/2023. Left lipoma surgery shoulder area 04/2022. Reviewed notes from [facility] - they sent only notes regarding shoulder (Dr. Joy) and foot (2021). Patient says he's had xrays after surgery (not available for me today) but no MRI after cervical surgery. He does have claustrophobia and can't do an MRI. Continues to have posterior neck pain, worse with turning head. Last time he saw Dr. Bermeo, told to use CBD ointment which didn't help. not much else he can do . He is here to see if there is anything else he can do to have more comfortable life. Never had injections for neck pain. He does not want to do cervical spine injections. Numbness associated with the neck pain, getting better, bilateral 3rd-5th digits. Started only after surgery. Has not had EMG. Went to PT for many months. History of DM and neuoropathy, COPD needs as needed O2 and at night, EFRAIN with CPAP. [facility] Medical History (Updated 10/22/24 @ 10:34 by Sarahy Sommers MD) Ulnar neuropathy at elbow Dyspnea on exertion Respiratory failure with hypoxia and hypercapnia Nocturnal hypoxemia Smoker COPD (chronic obstructive pulmonary disease) EFRAIN on CPAP Obesity (BMI 30.0-34.9) Social History (Updated 10/22/24 @ 09:47 by Erica Alonso) Patient Tobacco Use Status: Current everyday Tobacco user Tobacco use type: Cigarette Cigarette Packs Per Day: 0.5 Cigarettes Per Day: 10 Years Smoked: 20+ years, could be a pack a day at times. Current occupational status: retired Review of Systems Const All systems reviewed & are unremarkable except as noted in HPI and below Physical Exam Exam Exam: Constitutional: Patient appears to be in no acute distress, well nourished and well developed. Patient was appropriately conversant and oriented. Good historian. MSK: Inspection reveals appropriate head and neck positioning. Limited cervical extension with pain. Spurling's sign negative. Positive Tinel's sign bilateral elbow. Negative carpal compression test. Neurological: Mood appears normal, good affect, and appropriate for the circumstances. Neurologic examination of the upper and lower extremities was nonfocal with intact sensation, muscle stretch reflexes and without focal motor deficits. Reflexes appear flat although bilateral and symmetric upper extremities. Cm?s negative bilaterally. Babinski was down going bilaterally. Clonus was negative. Gait is non-antalgic without loss of balance. Vital Signs: BMI result Body Mass Index 29.8 Results Reviewed Results Reviewed: I reviewed records from the following: Reviewed notes sent from an [facility]. As above. Assessment & Plan Assessment & Plan (1) Ulnar neuropathy at elbow: Code(s): G56.20 - Lesion of ulnar nerve, unspecified upper limb Category: Medical Qualifiers: Laterality: unspecified laterality Qualified Code(s): G56.20 - Lesion of ulnar nerve, unspecified upper limb (2) Cervical radiculitis: Code(s): M54.12 - Radiculopathy, cervical region Category: Medical (3) History of cervical spinal surgery: Code(s): Z98.890 - Other specified postprocedural states Category: Surgical Plan Chronic back pain with numbness on 4th and 5th digits bilateral. History of fusion with Dr. Bermeo 2023. Patient looking for other means to improve his current quality of life and pain level. No signs of cervical myelopathy seen on exam today. We will get repeat cervical x-rays today. We will schedule for EMG to rule out ulnar neuropathy. Discussed that treatment for ulnar neuropathy is much simpler compared to further cervical spine surgery/interventions. He is not willing to do cervical spine interventions or MRI at this time. Although he will consider if truly needed or recommended. Assessment and plan discussed with patient, and patient was agreeable. All questions were answered thoroughly. Sarahy Sommers MD, MARA Board Certified, [place] Board of Physical Medicine and Rehabilitation (ABPMR) Board Certified, [place] Board of Electrodiagnostic Medicine (ABEM) Orders: Orders NE electromyogram (EMG) Today G56.20 - Lesion of ulnar nerve, unspecified upper limb XR cervical spine 3V Today M54.2 - Cervicalgia NE nerve conduction velocity Today G56.20 - Lesion of ulnar nerve, unspecified upper limb Coding Level of Care Code New Pt Level 4 (99350) Diagnoses Ulnar neuropathy at elbow, unspecified laterality G56.20 Laterality: unspecified laterality Cervical radiculitis M54.12 History of cervical spinal surgery Z98.890
== END 2024-10-22 11:41 | disposition home or self-care (01) ==
LOC: HO.HOS 09:39
PROVIDERS: PCP Internal Medicine; Visit Provider Physical Medicine & Rehabilitation
DX: M54.12 Radiculopathy, cervical region (principal); G56.23 Lesion of ulnar nerve, bilateral upper limbs; Z98.890 Other specified postprocedural states
CPT/HCPCS: 99204

== ENCOUNTER → 2024-10-22 10:23 | Outpatient (BNV) | payer OTHER, SELFPAY | PROVIDERS: PCP Internal Medicine; Visit Provider Radiology Body Imaging | DX: M50.30 Other cervical disc degeneration, unspecified cervical region (principal) | CPT/HCPCS: 72040 ==

== ENCOUNTER 2024-11-13 13:51 | Outpatient (REF) | payer OTHER, SELFPAY ==
--- NOTE | 2024-11-13 13:57 | EMG_ITS ---
Chief complaint: Please see my last note for full history. Reason for referral: Evaluate for ulnar neuropathy Procedure done: Right upper extremity NCS Precautions and/or limitations: Patient unable to tolerate further NCS, deferred needle EMG. The limb temperature was monitored continuously and remained between 32-36 degrees C during the performance of the NCS. Ulnar motor NCS was performed with moderate elbow flexion between 70-90 degrees, with across-elbow distance of 10 cm. Nerve Conduction Studies Anti Sensory Summary Table ?Stim Site NR Onset (ms) Norm Onset (ms) Peak (ms) Norm Peak (ms) O-P Amp (?V) Norm O-P Amp Site1 Site2 Delta-0 (ms) Dist (cm) Galileo (m/s) Norm Galileo (m/s) Right Median Anti Sensory (2nd Digit) Wrist ? 3.1 4.0 <3.6 2.6 >10 Wrist 2nd Digit 3.1 14.0 45 Right Radial Anti Sensory (Thumb) Forearm ? 1.8 2.2 <3.1 9.3 Forearm Thumb 1.8 0.0 Right Ulnar Anti Sensory (5th Digit) Wrist ? 5.0 5.8 <3.7 5.0 >15.0 Wrist 5th Digit 5.0 14.0 28 Motor Summary Table ?Stim Site NR Onset (ms) Norm Onset (ms) O-P Amp (mV) Norm O-P Amp iAmp (mV) Amp (1st) (%) Site1 Site2 Delta-0 (ms) Dist (cm) Galileo (m/s) Norm Galileo (m/s) Right Median Motor (Abd Poll Brev) Wrist ? 4.3 <3.9 9.3 >4.5 10.7 100.0 Elbow Wrist 4.6 23.0 50 >45 Elbow ? 8.9 9.0 10.4 96.8 Right Ulnar Motor (Abd Dig Minimi) Wrist ? 3.5 <3.0 4.1 >5 4.9 100.0 B Elbow Wrist 4.1 21.0 51 >45 B Elbow ? 7.6 3.2 3.9 78.0 A Elbow B Elbow 1.9 10.0 53 >45 A Elbow ? 9.5 3.5 4.1 85.4 FINDINGS: Right median motor nerve showed prolonged distal latency, normal amplitude and normal conduction velocity. Right ulnar motor nerve showed prolonged distal latency, small amplitude and normal conduction velocity. Right median sensory nerve showed small amplitude and prolonged peak latency. Right ulnar sensory nerve showed small amplitude and prolonged peak latency. All other nerves tested were within normal. IMPRESSION: 1. This is an abnormal nerve conduction study. 2. There is electrodiagnostic evidence for right moderate-severe median neuropathy at the wrist, consistent with carpal tunnel syndrome. 3. There is also electrodiagnostic evidence for right ulnar neuropathy. Unable to fully localize due to inability to do needle EMG. Clinical comment: Patient has symptoms on both sides although we were unable to test left side. Patient may consider surgery, we will refer to hand surgery Dr. Camilo. Thank you for your kind referral. Sarahy Sommers MD, MARA Board Certified, [place] Board [employer] and Rehabilitation (ABPMR) Board Certified, [place] Board [employer] Electrodiagnostic [employer] (ABEM) CODIN MTDD
== END 2024-11-13 13:52 | disposition home or self-care (01) ==
LOC: HO.NEURO 13:51
PROVIDERS: PCP Internal Medicine; Visit Provider Physical Medicine & Rehabilitation
DX: G56.21 Lesion of ulnar nerve, right upper limb (principal)
CPT/HCPCS: 95909

== ENCOUNTER → 2024-11-13 13:57 | Outpatient (BNV) | payer OTHER, SELFPAY | PROVIDERS: PCP Internal Medicine; Visit Provider Physical Medicine & Rehabilitation | DX: G62.89 Other specified polyneuropathies (principal) | CPT/HCPCS: 95909 ==

== ENCOUNTER 2024-11-18 09:32 | Outpatient (AMB) | payer OTHER, SELFPAY ==
[2024-11-18 09:39] VITALS: BP 104/62; PULSE 90; O2SAT 94; BMI 30.1
--- NOTE | 2024-11-18 09:39 | MHC.OFFVIS ---
Vital Signs 11/18/24 09:39 Height 5 ft 11 in Weight 216 lb BMI 30.1 BP 104/62 Blood Pressure Location Rt brachial Position Sitting Pulse 90 Pulse Source Pulse Oximeter Pulse Oximetry (%) 94 Oxygen Delivery Method Nasal Cannula Oxygen Flow Rate 2 Intake Visit Reasons: COPD Intake Note: Patient is here to follow up on COPD, patient stated o2 cylinder is too heavy for him to carry. Patient would like to try Inogen Allergies No Known Allergies (No Known Allergies*) Allergy (Unknown, Verified 11/18/24 09:58) Medication List - Last Reconciled 11/18/24 by Brennen Smith MD albuterol sulfate 90 mcg/actuation 2 puffs PO Q4-6H PRN 30 days albuterol sulfate 2.5 mg (3 mL) inhalation Q6H PRN aspirin 81 mg PO DAILY atorvastatin 20 mg PO DAILY azithromycin 250 mg PO 3XW 30 days docusate sodium 100 mg PO BID dulaglutide mg subcut QWEEK yrafkzxzdbn-eygttekjn-pgeyihhj 200-62.5-25 mcg (Trelegy Ellipta) 1 ea inhalation DAILY 30 days lisinopril 5 mg PO DAILY magnesium gluconate 54 mg PO DAILY metformin ER 1,000 mg PO BID naloxone 4 mg/actuation 0 sprays intranasal nicotine (Nicotrol) 1 inh inhalation Q2-4H PRN 30 days oxycodone 20 mg PO Q4H PRN oxycodone ER 30 mg PO Q12H Do you need a note to return to daycare/school/sports/work: No HPI HPI COPD: Details: This 74 years old gentleman with advanced chronic obstructive pulmonary disease and chronic respiratory failure, comes for follow-up. Claims that he is doing okay, sleeps well using IVAPS ventilatory support and O2 2 L/minute. During the daytime he has shortness of breath on walking around, uses O2 2 L/minute with a lightweight portable cylinder. He does have the portable cylinder but has to hang it on his shoulder. But because of cervical arthritis he gets lot of neck pain. He would like to have a POC for portability. Cough is mild and intermittent. He has had no acute respiratory infection. Continues to smoke half pack of cigarettes a day [facility] Medical History Ulnar neuropathy at elbow Dyspnea on exertion Respiratory failure with hypoxia and hypercapnia Nocturnal hypoxemia Smoker COPD (chronic obstructive pulmonary disease) EFRAIN on CPAP Obesity (BMI 30.0-34.9) Social History Patient Tobacco Use Status: Current everyday Tobacco user Tobacco use type: Cigarette Cigarette Packs Per Day: 0.5 Cigarettes Per Day: 10 Years Smoked: 20+ years, could be a pack a day at times. Current occupational status: retired Review of Systems Const All systems reviewed & are unremarkable except as noted in HPI and below Eyes Reports no additional complaints ENT Reports no additional complaints Card Denies chest pain, Denies irregular heart rhythm and Denies leg edema Resp Reports as per HPI GI Reports no additional complaints Reports no additional complaints Musc Reports back pain (Chronic, being treated with long-acting oxycodone) Skin/Breast Reports system reviewed and no additional complaints, except as documented Neuro Reports no additional complaints Psych Reports no additional complaints Endo Reports other (Being treated for type 2 diabetes mellitus and hyperlipidemia, hypothyroidi) Physical Exam Vital Signs: Last Vital Signs Pulse 90 11/18/24 09:39 BP 104/62 11/18/24 09:39 Pulse Ox 94 11/18/24 09:39 Oxygen Delivery Method Nasal Cannula 11/18/24 09:39 Oxygen Flow Rate 2 11/18/24 09:39 BMI result Body Mass Index 30.1 Const General: healthy appearing, comfortable, no acute distress, alert and awake Orientation/consciousness: patient oriented x3 HEENT Head: Yes normal to inspection General nose exam: No nasal polyps present and No nasal discharge present Face and sinus: Yes sinuses nontender Mouth: oropharynx normal Throat: Yes posterior oropharynx normal Eyes General: appearance normal, both eyes and all related structures Neck Neck: Yes normal visual inspection, Yes no lymphadenopathy, Yes trachea midline and Yes no JVD Thyroid: Thyroid normal Chest Chest palpation & inspection: normal inspection of the chest, normal palpation of entire chest wall and no tenderness Resp Other: Percussion note is resonant, breath sounds are distant but equal on both sides with prolonged expiratory phase. He sounds raspy , in the upper airways but does not have any audible wheezes rhonchi or crepitations. Cardio Palpation: normal PMI Rate: regular rate Rhythm: regular rhythm Heart sounds: no gallops and no murmurs GI Palpation (GI): Soft to palpation, nontender, No hepatosplenomegaly present and no masses Auscultation: normal bowel sounds Back/Spine/Pelvis Thoracic/Lumbar Spine: thoracic and lumbar spine normal to inspection Skin General skin exam: no rashes or lesions noted Neuro General: patient oriented x3 and no focal motor deficits Cranial nerves: Yes CN's II-XII intact bilaterally Extrem General: Yes normal to inspection, Yes no clubbing, cyanosis or edema and Yes no calf tenderness Psych Appearance: grossly normal and well kempt Speech and movement: Normal speech and movement present Office Procedures 6 Minute Walk Time:: 10:00 SPO2 % at rest: 91 Pulse at rest: 93 SPO2 % during excercise: 88 Pulse during excercise: 104 SPO2 % after excercise: 93 Pulse after excercise: 100 Distance in yards walked: 260 [place] Score: 7 Performance Observations:: Salvador walked on level ground unassisted. He walked on room air for 80 yards before his SPO2 decreased to 88%, O2 started on pulsed setting 2. His SPO2 recovered to 94% and he was able to maintain his SPO2 93-94% on pulsed O2 setting 2. [id number] - 6 Minute Walk Results Reviewed Results Reviewed: 6 minutes walk Test hE DID ok WITH o2 CONSERVING UNIT AND 2L/MT Assessment & Plan Assessment & Plan (1) EFRAIN on CPAP: Comment: HE HAS CHRONIC EFRAIN/HYPOVENTILATION SYNDROME. WELL TREATED WITH HIS NONINVASIVE VENTILATORY SUPPORT AT NIGHT(IVAPS ) with nasal pillows. COMPLIANCE IS GOOD AND HE IS BENEFITING FROM THE USE OF VENTILATORY SUPPORT. Code(s): G47.33 - Obstructive sleep apnea (adult) (pediatric); Z99.89 - Dependence on other enabling machines and devices Category: Medical Plan: COMMENDED FOR GOOD COMPLIANCE AND ADVISED TO CONTINUE USING THE VENTILATORY SUPPORT AT NIGHT, WITH O2 2 L/MINUTE. (2) COPD (chronic obstructive pulmonary disease): Comment: COPD, IS SEVERE , BUT has been CONTROLLED AND STABLE WITH HIS CURRENT MEDICAL REGIMEN. However now for the past many weeks he is having increased shortness of breath on minimal exertion. There has been no acute respiratory infection, but he does seem to have upper respiratory congestion. UNFORTUNATELY, HE CONTINUES TO SMOKE, SAY IS HE IS BACK TO HALF PACK A DAY. Code(s): J44.9 - Chronic obstructive pulmonary disease, unspecified Category: Medical Plan: FOR COPD ADVISED TO CONTINUE USING TRELEGY ELLIPTA 1 INHALATION DAILY AND ALBUTEROL HFA 2 PUFFS Q 4-6 HOURS P.R.N. ALSO CONTINUE AZITHROMYCIN 250 MG P.O. 3 DAYS A WEEK (3) Smoker: Comment: CHRONIC SMOKER, HAS TRY TO QUIT MANY TIMES BUT CAN NOT. SAY IS THAT HE IS DOWN TO HALF PACK A DAY. Code(s): F17.200 - Nicotine dependence, unspecified, uncomplicated Category: Social Hx Plan: AGAIN STRESSED THAT HE HAS TO QUIT SMOKING. OR AT LEAST CUT DOWN TO 5-6 CIGARETTES A DAY FOR THE TIME. (4) Respiratory failure with hypoxia and hypercapnia: Comment: Has chronic COPD/EFRAIN/hypoventilation syndrome, VENOUS BLOOD GAS STUDY SHOWS THAT HE HAS CHRONIC COMPENSATED HYPERCAPNIC RESP . FAILURE PCO2 66 BEING TREATED WITH IVAPS MODE OF VENTILATORY SUPPORT, SINCE ABOUT 12 YEARS AGO, WHEN HE HAD CPAP TITRATION STUDY AT [facility] Also uses O2 2 L/minute at night along with the iVAPS . Remains very compliant. HE ALSO NEEDS PORTABLE OXYGEN DURING THE DAYTIME. AT 2 L/MINUTE. HAS A LIGHTWEIGHT CYLINDER BUT HE WANTS TO SEE IF HE CAN GET POC, HE CAN NOT CARRY THE CYLINDER, THE STRAP OVER THE RIGHT SHOULDER HURTS HIS SHOULDER AND NECK. 6 MINUTES WALK TEST QUALIFIES HIM FOR HAVING POC, AT O2 2 L/MINUTE. Code(s): J96.91 - Respiratory failure, unspecified with hypoxia; J96.92 - Respiratory failure, unspecified with hypercapnia Category: Medical Plan: I WILL SEND ORDER FOR POC UNIT WITH O2 2 L/MINUTE. (5) Obesity (BMI 30.0-34.9): Comment: CONTINUES TO BE MODERATELY OVERWEIGHT, HAS NOT BEEN ABLE TO LOSE MUCH WEIGHT, HE CAN NOT DO ANY EXERCISE. Code(s): E66.9 - Obesity, unspecified Category: Medical Plan: TALKED ABOUT CONTROLLING HIS DIET, AND TRY TO CUT DOWN THE INTAKE OF CARBOHYDRATES MUCH POSSIBLE. Orders: Orders AMB 6 minute walk Today J44.9 - Chronic obstructive pulmonary disease, unspecified Coding Level of Care Code Est Pt Level 4 (84501) Diagnoses EFRAIN on CPAP G47.33; Z99.89 COPD (chronic obstructive pulmonary disease) J44.9 Smoker F17.200 Respiratory failure with hypoxia and hypercapnia J96.91; J96.92 Obesity (BMI 30.0-34.9) E66.9 CPT Codes Coding ([id number])
[2024-11-18 10:15] VITALS: PULSE 93; O2SAT 91
== END 2024-11-18 11:33 | disposition home or self-care (01) ==
PROVIDERS: PCP Internal Medicine; Visit Provider Internal Medicine
DX: G47.33 Obstructive sleep apnea (adult) (pediatric) (principal); Z99.89 Dependence on other enabling machines and devices; J44.9 Chronic obstructive pulmonary disease, unspecified; F17.200 Nicotine dependence, unspecified, uncomplicated; J96.91 Respiratory failure, unspecified with hypoxia; J96.92 Respiratory failure, unspecified with hypercapnia; E66.9 Obesity, unspecified
CPT/HCPCS: 94618; 99214

== ENCOUNTER → 2024-11-18 09:32 | Outpatient (BNVA) | payer OTHER, SELFPAY | PROVIDERS: PCP Internal Medicine; Visit Provider Internal Medicine | DX: G47.33 Obstructive sleep apnea (adult) (pediatric) (principal); J44.9 Chronic obstructive pulmonary disease, unspecified; J96.91 Respiratory failure, unspecified with hypoxia; J96.92 Respiratory failure, unspecified with hypercapnia; E66.9 Obesity, unspecified; F17.210 Nicotine dependence, cigarettes, uncomplicated; Z99.89 Dependence on other enabling machines and devices; Z68.30 Body mass index [BMI] 30.0-30.9, adult | CPT/HCPCS: 94618; 99212 ==

== ENCOUNTER 2024-12-18 09:57 | Outpatient (AMB) | payer OTHER, SELFPAY ==
--- NOTE | 2024-12-18 10:01 | MHC.OFFVIS ---
Intake Visit Reasons: OV- EMG/Nerve Conduction study Review,11/13/24. Intake Note: Salvador is 74 year old male who presents today as a follow up from his EMG/nerve conduction study review, 11/13/24. Patient states no changes to report at this time. Allergies No Known Allergies (No Known Allergies*) Allergy (Unknown, Verified 12/18/24 10:05) Medication List - Last Reconciled 12/18/24 by Sarahy Sommers MD albuterol sulfate 90 mcg/actuation 2 puffs PO Q4-6H PRN 30 days albuterol sulfate 2.5 mg (3 mL) inhalation Q6H PRN aspirin 81 mg PO DAILY atorvastatin 20 mg PO DAILY azithromycin 250 mg PO 3XW 30 days docusate sodium 100 mg PO BID dulaglutide mg subcut QWEEK kgoyqwmizee-aiquuqyrn-cxbsclhx 200-62.5-25 mcg (Trelegy Ellipta) 1 ea inhalation DAILY 30 days lisinopril 5 mg PO DAILY magnesium gluconate 54 mg PO DAILY metformin ER 1,000 mg PO BID naloxone 4 mg/actuation 0 sprays intranasal nicotine (Nicotrol) 1 inh inhalation Q2-4H PRN 30 days oxycodone 20 mg PO Q4H PRN oxycodone ER 30 mg PO Q12H HPI Comments Details: History of right RTC surgery 15-20 years ago. Cervial surgery by Dr. Bermeo 04/2023. Left lipoma surgery shoulder area 04/2022. Reviewed notes from [facility] - they sent only notes regarding shoulder (Dr. Joy) and foot (2021). Continues to have posterior neck pain, worse with turning head. Last time he saw Dr. Bermeo, told to use CBD ointment which didn't help. not much else he can do . He is here to see if there is anything else he can do to have more comfortable life. Never had injections for neck pain. He does not want to do cervical spine injections. Numbness associated with the neck pain, getting better, bilateral 3rd-5th digits. Started only after surgery. Has not had EMG. Went to PT for many months. History of DM and neuoropathy, COPD needs as needed O2 and at night, EFRAIN with CPAP. EMG showed right Carpal Tunnel Syndrome and ulnar neuropathy. Patient scheduled to see hand surgery [facility] 12/30. Cervical x-ray showed evidence of past fusion and also of degenerative changes. [facility] Medical History Ulnar neuropathy at elbow Dyspnea on exertion Respiratory failure with hypoxia and hypercapnia Nocturnal hypoxemia Smoker COPD (chronic obstructive pulmonary disease) EFRAIN on CPAP Obesity (BMI 30.0-34.9) Social History Patient Tobacco Use Status: Current everyday Tobacco user Tobacco use type: Cigarette Cigarette Packs Per Day: 0.5 Cigarettes Per Day: 10 Years Smoked: 20+ years, could be a pack a day at times. Current occupational status: retired Physical Exam Exam Exam: Constitutional: Patient appears to be in no acute distress, well nourished and well developed. Patient was appropriately conversant and oriented. Good historian. MSK: shakira nodes on over left 2nd DIP. Neurological: Gait is non-antalgic without loss of balance. Results Reviewed Results Reviewed: EXAMINATION: XR CERVICAL SPINE CLINICAL INFORMATION: M54.2 - Cervicalgia COMPARISON: None available. TECHNIQUE: 4 views of the cervical spine were obtained. FINDINGS: Evaluation of the swimmer's view is partially limited due to overlapping structures. Straightening of the cervical lordosis. Minimal anterolisthesis of C2 on C3 and C4 on C5 on the swimmer's view. No obvious compression fracture. At least partial fusion of the posterior elements of the second-fourth vertebrae. Metallic structures in the posterior lower cervical spine. Disc space narrowing at multiple levels, more pronounced at C3-C4 and C5-C6. Bridging marginal osteophytes at multiple levels. Odontoid process appears well aligned with the lateral masses of C1. XR/XR cervical spine 3V IMPRESSION: Moderate degree of multilevel degenerative changes. Electronically signed by: Mac Nicole MD 10/22/2024 01:45 PM EDT RP EMG 11/13/2024 IMPRESSION: 1. This is an abnormal nerve conduction study. 2. There is electrodiagnostic evidence for right moderate-severe median neuropathy at the wrist, consistent with carpal tunnel syndrome. 3. There is also electrodiagnostic evidence for right ulnar neuropathy. Unable to fully localize due to inability to do needle EMG. Assessment & Plan Assessment & Plan (1) Carpal tunnel syndrome of left wrist: Code(s): G56.02 - Carpal tunnel syndrome, left upper limb Category: Medical (2) Ulnar neuropathy at elbow: Code(s): G56.20 - Lesion of ulnar nerve, unspecified upper limb Category: Medical Qualifiers: Laterality: unspecified laterality Qualified Code(s): G56.20 - Lesion of ulnar nerve, unspecified upper limb (3) Cervical radiculitis: Code(s): M54.12 - Radiculopathy, cervical region Category: Medical (4) History of cervical spinal surgery: Code(s): Z98.890 - Other specified postprocedural states Category: Surgical Plan Chronic neck pain with numbness on 4th and 5th digits bilateral. EMG confirms left Carpal Tunnel Syndrome and ulnar neuropathy. He has an appointment with hand surgery coming up in less than 2 weeks. We looked at cervical spine x-rays today. History of fusion with Dr. Bermeo 2023. No signs of cervical myelopathy seen on exam today. We talked about precautions. Assessment and plan discussed with patient, and patient was agreeable. All questions were answered thoroughly. Sarahy Sommers MD, MARA Board Certified, [place] Board of Physical Medicine and Rehabilitation (ABPMR) Board Certified, [place] Board of Electrodiagnostic Medicine (ABEM) Coding Level of Care Code Est Pt Level 3 (05598) Diagnoses Carpal tunnel syndrome of left wrist G56.02 Ulnar neuropathy at elbow, unspecified laterality G56.20 Laterality: unspecified laterality Cervical radiculitis M54.12 History of cervical spinal surgery Z98.890
== END 2024-12-18 11:06 | disposition home or self-care (01) ==
LOC: HO.HOS 09:57
PROVIDERS: PCP Internal Medicine; Visit Provider Physical Medicine & Rehabilitation
DX: G56.02 Carpal tunnel syndrome, left upper limb (principal); G56.22 Lesion of ulnar nerve, left upper limb; M54.12 Radiculopathy, cervical region; Z98.890 Other specified postprocedural states
CPT/HCPCS: 99213

== ENCOUNTER → 2024-12-18 09:57 | Outpatient (BNVA) | payer OTHER, SELFPAY | PROVIDERS: PCP Internal Medicine; Visit Provider Physical Medicine & Rehabilitation | DX: Z71.2 Person consulting for explanation of examination or test findings (principal); M54.2 Cervicalgia; G56.02 Carpal tunnel syndrome, left upper limb; G89.29 Other chronic pain | CPT/HCPCS: 99212 ==

== ENCOUNTER 2024-12-30 14:56 | Outpatient (AMB) | payer OTHER, SELFPAY ==
--- NOTE | 2024-12-30 14:59 | A.OFFVIS_ITS ---
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 Patient complains of right middle, index, and ring finger numbness and tingling without sleep distu rbance. Patient reports symptoms are daily and constant, making it difficult to tallier, squeeze, and open and close lids. Denies finger locking. Has not tried braces, steroid injections, or OT. Denies any prior injuries or surgeries to the right hand.?Patient also complains of left hand numbness and tingling however we do not have an EMG for the left side. IMPRESSION 11/13/24: 1. This is an abnormal nerve conduction study. 2. There is electrodiagnostic evidence for right moderate-severe median neuropathy at the wrist, consistent with carpal tunnel syndrome. 3. There is also electrodiagnostic evidence for right ulnar neuropathy. Unable to fully localize due to inability to do needle EMG. Clinical comment: Patient has symptoms on both sides although we were unable to test left side. Patient may consider surgery, we will refer to hand surgery Dr. Camilo. 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 Patient complains of right middle, index, and ring finger numbness and tingling without sleep disturbance. Patient reports symptoms are daily and constant, making it difficult to tallier, squeeze, and open and close lids. Denies finger locking. Has not tried braces, steroid injections, or OT. Denies any prior injuries or abdi rgeries to the right hand.?Patient also complains of left hand numbness and tingling however we do not have an EMG for the left side. Patient states that the left side bothers him more than the right side. IMPRESSION 11/13/24: 1. This is an abnormal nerve conduction study. 2. There is electrodiagnostic evidence for right moderate-severe median neuropathy at the wrist, consistent with carpal tunnel syndrome. 3. There is also electrodiagnostic evidence for right ulnar neuropathy. Unable to fully localize due to inability to do needle EMG. Clinical comment: Patient has symptoms on both sides although we were unable to test left side. Patient may consider surgery, we will refer to hand surgery Dr. Camilo. [facility] Medical History (Updated 01/07/25 @ 14:52 by HERRERA Bates) Ulnar neuropathy at elbow Dyspnea on exertion Respiratory failure with hypoxia and hypercapnia Nocturnal hypoxemia Smoker COPD (chronic obstructive pulmonary disease) EFRAIN on CPAP Obesity (BMI 30.0-34.9) Surgical History (Updated 12/30/24 @ 15:07 by WESLY Jeffries) History of shoulder surgery History of neck surgery Social History Alcohol intake: current Alcohol intake frequency: holidays/special occasions only Patient Tobacco Use Status: Current everyday Tobacco user Tobacco use type: Cigarette Cigarette Packs Per Day: 0.5 Cigarettes Per Day: 10 Years Smoked: 20+ years, could be a pack a day at times. Current occupational status: retired Review of Systems Const All systems reviewed & are unremarkable except as noted in HPI and below Physical Exam Vital Signs: BMI result Body Mass Index 30.1 Extrem Other: Patient is alert, oriented, and in no acute distress. Neuro: Diminished sensation of the tips of all digits of bilateral hands in the office today Vascular: Cap refill brisk Pain: No pain with range of motion of bilateral hands ROM: Patient is able to make a closed fist and extend all digits of bilateral hands fully and without difficulty Skin: No lacerations or abrasions. General: No ecchymosis, erythema, or evidence of infection. Psych: Appears grossly normal Affect normal Attitude cooperative Assessment & Plan Assessment & Plan (1) Right carpal tunnel syndrome: Code(s): G56.01 - Carpal tunnel syndrome, right upper limb Category: Medical (2) Cubital tunnel syndrome on right: Code(s): G56.21 - Lesion of ulnar nerve, right upper limb Category: Medical (3) Numbness and tingling of left hand: Code(s): R20.0 - Anesthesia of skin; R20.2 - Paresthesia of skin Category: Medical Plan 1. Numbness and tingling of left hand Patient was unable to tolerate having both upper extremities performed for EMG at previous visit However, as the left hand is bothering him significantly more than the right, I feel it is most appropriate to get an EMG and nerve conduction study of the left hand so that we can determine what is causing his numbness, tingling, and pain, and treat this in the quickest possible fashion EMG ordered today Follow-up after EMG and nerve conduction study 2. Carpal tunnel syndrome, right 3. Cubital tunnel syndrome, right Patient states he would like to have EMG and treatment of the left hand prior to any treatment on the right After we have treated the left side, we will explore carpal and cubital tunnel releases on the right Patient understands this and is amenable to this plan Orders: Orders NE electromyogram (EMG) 12/30/24 R20.0 - Anesthesia of skin, R20.2 - Paresthesia of skin NE nerve conduction velocity 12/30/24 R20.0 - Anesthesia of skin, R20.2 - Paresthesia of skin Coding Level of Care Code New Pt Level 3 (99439) Diagnoses Right carpal tunnel syndrome G56.01 Cubital tunnel syndrome on right G56.21 Numbness and tingling of left hand R20.0; R20.2
[2024-12-30 15:00] VITALS: BMI 30.1
--- OUTSIDE RECORDS SUMMARY | 2024-12-30 21:11 | XMS_ITS | Data Portability ---
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 Name Role Phone HIM CCA OTHER Assessment Encounter Date Assessment Date Assessment LastModified by Organization Details LastModified Time 02/11/2024 02/11/2024 Evaluation in the field was performed by my complex care nurse colleague, as noted above, I provided real-time [...] Address Organization Details Last Updated DateTime 4 14290.3 2 g 95 % 95 % 182.88 [...] Diagnosis SNOMED-CT Code Diagnosis ICD10 Code Diagnosis IMO Codes Diagnosis Note [address] MD Main - [facility] [address] [place] [id number] 02/11/2024 15:59:43 02/11/2024 20:52:14 Adult health examination [id number] Z00.00 Health Concerns Section Related Observation LastModified by Organization Detai ls LastModified Time None Recorded Concern Status LastModified by Organization Details LastModified Time None Recorded Advance Directives Directive None Recorded Payers Insurance Date Sequence Insurance Name Policy Number Policy Matta Covered Member ID Matta Member ID Guarantor Name 02/11/2024 1 [facility] - DOS ON OR AFTER 2022 - DUAL ELIGIBLE - [facility] OPTIONS AND ONE CARE (MEDICARE REPLACEMENT/ADV ANTAGE - HMO) Salvador Mcginnis [id number] Salvador Mcginnis Notes Date Note Type Note Provider Name and Address Organization Details Recorded Time 02/11/2024 text/html ROS as noted in the [facility] CRC Nurse Triage Notes (Effie Carlisle): Chief Complaints: Diabetes-related PMH: Diabetes Mellitus Type 2, Hypertension, Chronic Obstructive Pulmonary Disease (COPD) Comments: Needs a diabetic assessment prior to receiving diabetic shoes at [facility] [employer].Unable to get an appt with PCP until end of May and will not be able to get his diabetic shoes. Patient is not having any acute diabetic problems. Asymptomatic. Takes Trulicity once and week and Metformin daily. ................... ................... ................... ................... ................... ................... ................... ........ 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 If no filler shredder, follow up with PCP/diabetic Dr. After talking with [facility], states pt has a filler shredder, and will follow up with filler shredder. Red flags discussed. Pt has no further questions. ................... ................... ................... ................... ................... ................... ................... ........ [facility] Consulted: [address]ina St ................... ................... ................... ................... ................... ................... ................... ........ Disposition: Fulfilled Karolina St MD [address] [facility],[address], [place], [address], [email or web address] 02/11/2024 17:18:29
== END 2024-12-30 15:25 | disposition home or self-care (01) ==
LOC: HO.HOS 14:57
PROVIDERS: PCP Internal Medicine
DX: G56.01 Carpal tunnel syndrome, right upper limb (principal); G56.21 Lesion of ulnar nerve, right upper limb; R20.0 Anesthesia of skin; R20.2 Paresthesia of skin
CPT/HCPCS: 99213

== ENCOUNTER → 2024-12-30 14:56 | Outpatient (BNVA) | payer OTHER, SELFPAY | PROVIDERS: PCP Internal Medicine | DX: G56.01 Carpal tunnel syndrome, right upper limb (principal); G56.21 Lesion of ulnar nerve, right upper limb; R20.0 Anesthesia of skin; R20.2 Paresthesia of skin | CPT/HCPCS: 99212 ==

== ENCOUNTER 2025-01-27 11:06 | Outpatient (AMB) | payer OTHER, SELFPAY ==
--- OUTSIDE RECORDS SUMMARY | 2025-01-22 23:59 | XMS_ITS | Continuity of Care Document ---
Author Organization [facility] [place] lt Address [address] [place] [address]- Care Team Providers Care Broker Assistant Name Role Phone Raul MANSFIELD, Kaz Jordan Primary Care Physician Encounter [facility] Date(s): 12/23/24 - 01/22/25 [facility] Adult [address] [place] [address]- Encounter Type: Triage Allergies, Adverse Reactions, Alerts No Known Allergies Immunizations Given and Recorded Vaccine Date Status Refusal Reason SARS-CoV-2(COVID-19)mRNA-LNP vac([id number]) 01/11/24 Recorded influenza virus vaccine, inactivated 10/25/23 Iván rded influenza virus vaccine, inactivated 12/11/22 Give n influenza virus vaccine, inactivated 1 12/27/21 Gi shefali influenza virus vaccine, inactivated 2 01/04/21 Gi shefali influenza virus vaccine, inactivated 12/02/19 Give n influenza virus vaccine, inactivated 02/11/19 Give n influenza virus vaccine, inactivated 3 12/17/17 Gi shefali influenza virus vaccine, inactivated 4 01/03/17 Gi shefali influenza virus vaccine, inactivated 02/29/16 Give n influenza virus vaccine, inactivated 12/17/14 Give n influenza virus vaccine, inactivated 5 11/27/13 Gi shefali influenza virus vaccine, inactivated 03/27/13 Give n influenza virus vaccine, inactivated 6 01/04/12 Gi shefali influenza virus vaccine, inactivated 11/29/09 Iván rded pneumococcal 20-valent conjugate vaccine 07/16/22 Given [id number] 12y+ bivalent booster vax 7 12/27/21 Given zoster vaccine, inactivated 12/09/21 Recorded zoster vaccine, inactivated 02/11/21 Recorded SARS-CoV-2 mRNA ([id number]) vax 8 07/27/21 Given tetanus/diphtheria/pertussis, acel(Tdap) 05/18/21 Recorded tetanus/diphtheria/pertussis, acel(Tdap) 05/23/15 Given SARS-CoV-2 (COVID-19) mRNA BNT-162b2 vac 02/11/21 Recorded SARS-CoV-2 (COVID-19) mRNA BNT-162b2 vac 06/08/20 Recorded SARS-CoV-2 (COVID-19) mRNA BNT-162b2 vac 05/18/20 Recorded hepatitis B adult vaccine 9 05/09/20 Given hepatitis B adult vaccine 10 01/05/20 Given hepatitis B adult vaccine 12/02/19 Given hepatitis B adult vaccine 10/04/15 Given pneumococcal 23-valent vaccine 12/02/19 Given Hepatitis A Adult Vaccine 12/02/19 Given Hepatitis A Adult Vaccine 10/04/15 Given pneumococcal 13-valent vaccine 11 12/22/15 Recorde d Pneumococcal Vacc (oldterm) 12/07/10 Given FluLaval (oldterm) 12/07/10 Given Diphtheria/Tet/Pertussis, Acel (oldterm) 12 03/11/05 Given 1Result Comment: [facility]# [phone] 2Result Comment: [facility]# [address] [phone] 3Result Comment: [12/17/2017] [facility] [id number] [phone] 4Result Comment: [01/03/2017] 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# [id number] 8Result Comment: [id number] 9Result Comment: [facility]-[id number] 10Result Comment: [facility]-[id number] 11Result Comment: [12/29/2015] [facility] 12Admin Note: history Medications Aerochamber See Instructions, # 1 units, Maintenance, use w/ symbicort & albuterol, 07/11/15 3:56:42 PM EDT, Compound Start Date: 07/11/15 Status: Ordered Medication Dispense Status: Completed Quantity: 1.0 Unit: Units Total Allowed Fills: 1 Fills Dispensed: 0 AirFit P10 Pillow Medium AirFit P10 Pillow Medium, See Instructions, # 5 each, Refills 11, Tot. Refills 11, Maintenance, useas directed for DX: Severe obstructive sleep apnea G47.33, 09/16/17 3:49:52 PM EDT, Compound Start Date: 09/16/17 Status: Ordered Medication Dispense Status: Completed Quantity: 5.0 Unit: each Total Allowed Fills: 12 Fills Dispensed: 0 Alcohol Pads See Instructions, # 300 each, Refills 3, Tot. Refills 3, Maintenance, Check Glucose 3 times daily and as needed for signs and symptoms of High or low blood glucose symptoms. Wipe finger with a palcohol pad, and allow to fully dry, before checking sugar. E11.9 Dx T2DM, 06/21/23 11:00:00 AM EDT, Supply, 180.34, cm, 05/17/23 15:09:00 EST, Height, 92.3, kg, 05/07/23 10:46:00 EST, Dry Weight Start Date: 06/21/23 Status: Ordered Medication Dispense Status: Completed Quantity: 300.0 Unit: each Total Allowed Fills: 4 Fills Dispensed: 0 aspirin 81 mg oral capsule 1 capsule = 81 mg, By Mouth, Daily, do not exceed 48 capsules in 24 hours, # 30 capsule, 0 Refills,Maintenance, 05/03/23 11:54:00 AM EST, Capsule, Partial fill upon patient request if the prescription is for a schedule II opioid drug. Start Date: 05/03/23 Status: Ordered Medication Dispense Status: Completed Quantity: 30.0 Unit: capsule Total Allowed Fills: 1 Fills Dispensed: 0 atorvastatin 20 mg oral tablet 1 tablet = 20 mg, By Mouth, Daily, # 90 tablet, 3 Refills, Maintenance, 02/27/24 11:22:00 AM EST, [facility] #[id number], 180.34, cm, 09/24/23 10:41:00 EDT, Height, 92.3, kg, 05/07/23 10:46:00 EST, Dry Weight Start Date: 02/27/24 Status: Ordered Medication Dispense Status: Completed Quantity: 90.0 Unit: tablet Total Allowed Fills: 4 Fills Dispensed: 0 Centrum Men's oral tablet 1 tablet, By Mouth, Daily, 0 Refills, Maintenance, 05/03/23 11:56:00 AM EST, Partial fill upon patient request if the prescription is for a schedule II opioid drug. Start Date: 05/03/23 Status: Ordered Medication Dispense Status: Completed Total Allowed Fills: 1 Fills Dispensed: 0 CPAP Mask, Cushions, Tubing, Filters, Headgear, Chin strap and Water Chamber CPAP Mask, Cushions, Tubing, Filters, Headgear, Chin strap and Water Chamber, See Instructions, # 1each, Refills 11, Tot. Refills 11, Maintenance, Dx G47.33 SOA, 06/18/19 10:06:00 AM EDT, Compound Start Date: 06/18/19 Status: Ordered Medication Dispense Status: Completed Quantity: 1.0 Unit: each Total Allowed Fills: 12 Fills Dispensed: 0 Diabetic shoes Diabetic shoes, See Instructions, # 1 pair, Refills 0, Tot. Refills 0, Maintenance, For use PRN forDM II, 04/10/11 3:41:11 PM EST Start Date: 04/10/11 Status: Ordered Medication Dispense Status: Completed Quantity: 1.0 Unit: pair Total Allowed Fills: 1 Fills Dispensed: 0 Diabetic Shoes Diabetic Shoes, See Instructions, # 1 each, Refills 0, Tot. Refills 0, Maintenance, Diabetic shoes one pair of custom shoes and three sets of custom heat molded inserts DX: Diabetic Polyneuropathy E11.42, 05/18/24 7:57:00 AM EDT, Supply Start Date: 05/18/24 Status: Ordered Medication Dispense Status: Completed Quantity: 1.0 Unit: each Total Allowed Fills: 1 Fills Dispensed: 0 docusate sodium 100 mg oral capsule 1 capsule, By Mouth, 2 times a day, PRN NEEDED FOR CONSTIPATION, # 180 capsule, 1 Refills, Maintenance, 12/01/24 10:24:00 AM EDT, [facility] #[id number], 180.34, cm, 11/20/24 10:15:00 EDT, Height, 92.3, kg, 05/07/23 10:46:00 EST, Dry Weight Start Date: 12/01/24 Status: Ordered Medication Dispense Status: Completed Quantity: 180.0 Unit: capsule Total Allowed Fills: 2 Fills Dispensed: 0 Golytely - oral powder for reconstitution 240 mL, By Mouth, Every 10 minutes, # 1 each, 0 Refills, Maintenance, 12/08/24 10:01:00 AM EDT, REC Powder, [facility] #[id number], Partial fill upon patient request if the prescription is for a schedule II opioid drug., 240 mL By Mouth Every 10 minutes, 180.34, cm, 12/08/24 9:49:00 EDT, Height, 92.3, kg, 05/07/23 10:46:00 EST, Dry Weight Start Date: 12/08/24 Status: Ordered Medication Dispense Status: Completed Quantity: 1.0 Unit: each Total Allowed Fills: 1 Fills Dispensed: 0 Golytely - oral powder for reconstitution 240 mL, By Mouth, Every 10 minutes, # 1 each, 0 Refills, Maintenance, 12/08/24 10:02:00 AM EDT, REC Powder, [facility] #[id number], Partial fill upon patient request if the prescription is for a schedule II opioid drug., 240 mL By Mouth Every 10 minutes, 180.34, cm, 12/08/24 9:49:00 EDT, Height, 92.3, kg, 05/07/23 10:46:00 EST, Dry Weight Start Date: 12/08/24 Status: Ordered Medication Dispense Status: Completed Quantity: 1.0 Unit: each Total Allowed Fills: 1 Fills Dispensed: 0 iVAPS target VA 5.8, EPAP 7 PSmin 6 PSmax 15, rate 15 with 2L O2 & heated humidification iVAPS target [place] 5.8, EPAP 7 PSmin 6 PSmax 15, rate 15 with 2L O2 & heated humidification, See Instructions, # 1 each, Refills 0, Tot. Refills 0, Maintenance, use overnight and naps from [facility], 04/22/15 3:29:14 PM EST, Compound Start Date: 04/22/15 Status: Ordered Medication Dispense Status: Completed Quantity: 1.0 Unit: each Total Allowed Fills: 1 Fills Dispensed: 0 Jardiance 10 mg oral tablet 1 tablet = 10 mg, By Mouth, Daily in AM, # 30 tablet, 11 Refills, Maintenance, 11/23/24 2:03:00 PM EDT, Tablet, [facility] #[id number], Partial fill upon patient request if the prescription is for a schedule II opioid drug., 180.34, cm, 11/20/24 10:15:00 EDT, Height, 92.3, kg, 05/07/23 10:46:00EST, Dry Weight Start Date: 11/23/24 Status: Ordered Medication Dispense Status: Completed Quantity: 30.0 Unit: tablet Total Allowed Fills: 12 Fills Dispensed: 0 lisinopril 5 mg oral tablet 5 mg, 1, tablet, By Mouth, Daily, # 90 tablet, Refills 3, Tot. Refills 3, Maintenance, 01/11/25 9:34:00 AM EST, Route to Pharmacy Electronically, [facility] #[id number], Partial fill upon patientrequest if the prescription is for a schedule II opioid drug., 180.34, cm, 12/08/24 9:49:00 EDT, Height, 92.3, kg, 05/07/23 10:46:00 EST, Dry Weight Start Date: 01/11/25 Status: Ordered Medication Dispense Status: Completed Quantity: 90.0 Unit: tablet Total Allowed Fills: 4 Fills Dispensed: 0 magnesium gluconate 500 mg oral tablet 2 tablet = 1,000 mg, By Mouth, Daily, # 60 tablet, 11 Refills, Maintenance, 03/13/24 7:34:00 AM EST, Tablet, [facility] #[id number], Partial fill upon patient request if the prescription is for a schedule II opioid drug., 180.34, cm, 09/24/23 10:41:00 EDT, Height, 92.3, kg, 05/07/23 10:46:00 EST, Dry Weight Start Date: 03/13/24 Status: Ordered Medication Dispense Status: Completed Quantity: 60.0 Unit: tablet Total Allowed Fills: 12 Fills Dispensed: 0 MetFORMIN (Eqv-Glucophage XR) 500 mg oral tablet, extended release 2 tablet, By Mouth, 2 times a day, # 360 tablet, 3 Refills, Maintenance, 11/29/23 2:24:00 PM EDT, [facility] #[id number], 180.34, cm, 09/24/23 10:41:00 EDT, Height, 92.3, kg, 05/07/23 10:46:00 EST, Dry Weight Start Date: 11/29/23 Status: Ordered Medication Dispense Status: Completed Quantity: 360.0 Unit: tablet Total Allowed Fills: 4 Fills Dispensed: 0 naloxone 4 mg/0.1 mL nasal spray See Instructions, 1 mg Nares, both Once may repeat every 2 to 3 minutes until patient responds prn respiratory distress, # 2 each, 0 Refills, Soft Stop, 05/07/23 11:20:00 AM EST, [facility], Partial fill upon patient request if the prescription is for a schedule II opioid drug., 180.34, cm, 05/07/23 10:46:00 EST, Height, 92.3, kg, 05/07/23 10:46:00 EST, Dry Weight Start Date: 05/07/23 Status: Ordered Medication Dispense Status: Completed Quantity: 2.0 Unit: each Total Allowed Fills: 1 Fills Dispensed: 0 Narcan 4 mg/0.1 mL nasal spray See Instructions, Once may repeat every 2 to 3 minutes until patient responds, # 2 each, 0 Refills,Soft Stop, 10/27/19 10:58:00 AM EDT, [facility] #[id number], 178, cm, 10/27/19 9:01:00 EDT, Height, 104.5, kg, 01/28/18 15:36:00 EST, Dry Weight Start Date: 10/27/19 Status: Ordered Medication Dispense Status: Completed Quantity: 2.0 Unit: each Total Allowed Fills: 1 Fills Dispensed: 0 omeprazole 20 mg oral enteric coated capsule 1 capsule = 20 mg, By Mouth, Daily, # 30 capsule, 0 Refills, Maintenance, 12/08/24 10:02:00 AM EDT, EC Capsule, [facility] #[id number], Partial fill upon patient request if the prescription is for a schedule II opioid drug., 180.34, cm, 12/08/24 9:49:00 EDT, Height, 92.3, kg, 05/07/23 10:46:00 EST, Dry Weight Start Date: 12/08/24 Status: Ordered Medication Dispense Status: Completed Quantity: 30.0 Unit: capsule Total Allowed Fills: 1 Fills Dispensed: 0 One Touch Delica Lancets See Instructions, # 300 each, Refills 3, Tot. Refills 3, Maintenance, Check Glucose 3 times daily and as needed for signs and symptoms of High or low blood glucose symptoms. E11.9 Dx T2DM, 06/21/23 1:46:00 PM EDT, Supply, 180.34, cm, 05/17/23 15:09:00 EST, Height, 92.3, kg, 05/07/23 10:46:00 EST, Dry Weight Start Date: 06/21/23 Status: Ordered Medication Dispense Status: Completed Quantity: 300.0 Unit: each Total Allowed Fills: 4 Fills Dispensed: 0 One Touch Delica Lancing System See Instructions, # 1 each, Refills 0, Tot. Refills 0, Maintenance, Check Glucose 3 times daily andas needed for signs and symptoms of High or low blood glucose symptoms. E11.9 Dx T2DM, 06/21/23 1:46:00 PM EDT, Supply, 180.34, cm, 05/17/23 15:09:00 EST, Height, 92.3, kg, 05/07/23 10:46:00 EST, Dry Weight Start Date: 06/21/23 Status: Ordered Medication Dispense Status: Completed Quantity: 1.0 Unit: each Total Allowed Fills: 1 Fills Dispensed: 0 One Touch Ultra 2 Glucose Meter See Instructions, # 1 each, Refills 0, Tot. Refills 0, Maintenance, Check Glucose 3 times daily andas needed for signs and symptoms of High or low blood glucose symptoms. E11.9 Dx T2DM, 06/21/23 1:43:00 PM EDT, Supply, 180.34, cm, 05/17/23 15:09:00 EST, Height, 92.3, kg, 05/07/23 10:46:00 EST, Dry Weight Start Date: 06/21/23 Status: Ordered Medication Dispense Status: Completed Quantity: 1.0 Unit: each Total Allowed Fills: 1 Fills Dispensed: 0 One Touch Ultra Test Strips See Instructions, # 300 each, Refills 3, Tot. Refills 3, Maintenance, Check Glucose 3 times daily and as needed for signs and symptoms of High or low blood glucose symptoms. E11.9 Dx T2DM, 06/21/23 1:43:00 PM EDT, Supply, 180.34, cm, 05/17/23 15:09:00 EST, Height, 92.3, kg, 05/07/23 10:46:00 EST, Dry Weight Start Date: 06/21/23 Status: Ordered Medication Dispense Status: Completed Quantity: 300.0 Unit: each Total Allowed Fills: 4 Fills Dispensed: 0 oxyCODONE 20 mg oral tablet 1 tablet = 20 mg, By Mouth, Every 4 hours, PRN as needed for pain, Chronic Back Pain. Contract on File., # 168 tablet, 0 Refills, Maintenance, 08/11/24 9:58:00 AM EDT, Tablet, [facility] #[id number], Partial fill upon patient request if the prescription is for a schedule II opioid drug., 180.34,cm, 05/15/24 13:34:00 EST, Height, 92.3, kg, 05/07/23 10:46:00 EST, Dry Weight Start Date: 08/11/24 Status: Ordered Medication Dispense Status: Completed Quantity: 168.0 Unit: tablet Total Allowed Fills: 1 Fills Dispensed: 0 oxyCODONE 20 mg oral tablet 1 tablet = 20 mg, By Mouth, Every 4 hours, PRN as needed for pain, Chronic back pain. Contract on file. Chronic Back pain. This three week Rx is in addition to 1 wwk supply to complete 28n day supply., # 168 tablet, 0 Refills, Maintenance, 06/28/23 10:41:00 AM EDT, Tablet, [facility] #[id number], Partial fill upon patient request if the prescription is for a schedule II opioid drug., 180.34, c m, 06/27/23 15:30:00 EDT, Height, 92.3, kg, 05/07/23 10:46:00 EST, Dry Weight Start Date: 06/28/23 Status: Ordered Medication Dispense Status: Completed Quantity: 168.0 Unit: tablet Total Allowed Fills: 1 Fills Dispensed: 0 oxyCODONE 20 mg oral tablet 1 tablet = 20 mg, By Mouth, Every 4 hours, Completes order of #168 tablets. 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 One week of medication Chronic back pain. Contravt on file., # 42 tablet, 0 Refills, Maintenance, 05/23/23 10:43:00 AM EDT, Tablet, [facility] #[id number], Partial fill upon patient request if the prescription is for a schedule II opioid drug., 180.34, cm, 05/17/23 15:09:00 EST, Height, 92.3, kg, 05/07/23 10:46:00 EST, Dry Weight Start Date: 05/23/23 Status: Ordered Medication Dispense Status: Completed Quantity: 42.0 Unit: tablet Total Allowed Fills: 1 Fills Dispensed: 0 oxyCODONE 20 mg oral tablet 1 tablet = 20 mg, By Mouth, Every 4 hours, PRN as needed for pain, Chronic Pain Contract on file., # 168 tablet, 0 Refills, Maintenance, 01/11/25 9:46:00 AM EST, Tablet, [facility] #[id number], Partial fill upon patient request if the prescription is for a schedule II opioid drug., 180.34, cm, 12/08/24 9:49:00 EDT, Height, 92.3, kg, 05/07/23 10:46:00 EST, Dry Weight Start Date: 01/11/25 Status: Ordered Medication Dispense Status: Completed Quantity: 168.0 Unit: tablet Total Allowed Fills: 1 Fills Dispensed: 0 oxyCODONE 20 mg oral tablet 1 tablet = 20 mg, By Mouth, Every 4 hours, PRN as needed for pain, # 168 tablet, 0 Refills, Maintenance, 10/26/24 11:16:00 AM EDT, Tablet, [facility] #[id number], Partial fill upon patient request if the prescription is for a schedule II opioid drug., 10/31/24, 180.34, cm, 08/20/24 11:21:00 EDT, Height, 92.3, kg, 05/07/23 10:46:00 EST, Dry Weight Start Date: 10/26/24 Status: Ordered Medication Dispense Status: Completed Quantity: 168.0 Unit: tablet Total Allowed Fills: 1 Fills Dispensed: 0 oxycodone 30 mg oral tablet, extended release 1 tablet = 30 mg, By Mouth, Every 12 hours, # 56 tablet, 0 Refills, Maintenance, 05/30/23 10:58:00 AM EDT, ER Tablet, [facility] #[id number], Partial fill upon patient request if the prescriptionis for a schedule II opioid drug., 180.34, cm, 05/17/23 15:09:00 EST, Height, 92.3, kg, 05/07/23 10:46:00 EST, Dry Weight Start Date: 05/30/23 Status: Ordered Medication Dispense Status: Completed Quantity: 56.0 Unit: tablet Total Allowed Fills: 1 Fills Dispensed: 0 oxycodone 30 mg oral tablet, extended release 1 tablet = 30 mg, By Mouth, Every 12 hours, Chronic back pain. Contract on file., # 56 tablet, 0 Refills, Maintenance, 12/23/24 11:16:00 AM EDT, ER Tablet, [facility] #[id number], Partial fill upon patient request if the prescription is for a schedule II opioid drug., 180.34, cm, 12/08/24 9:49:00 EDT, Height, 92.3, kg, 05/07/23 10:46:00 EST, Dry Weight Start Date: 12/23/24 Status: Ordered Medication Dispense Status: Completed Quantity: 56.0 Unit: tablet Total Allowed Fills: 1 Fills Dispensed: 0 [id number] with Electrolytes [place] (Eqv-NuLYTELY) oral powder for reconstitution 240 mL, By Mouth, Every 10 minutes, Stay on clear liquid diet for TWO FULL DAYS prior to the day ofthe procedure. Drink ONE FULL GALLON the evening before, and the OTHER FULL GALLON early in the morning on the day of the procedure., # 8,000 mL, 0 Refills, Maintenance, 08/14/24 12:07:00 PM EDT, REC Powder, [facility] #[id number], Partial fill upon patient request if the prescription is for a sc hedule II opioid drug., 240 mL By Mouth Every 10 minutes,Instr:Stay on clear liquid diet for TWO FULL DAYS prior to the day of the procedure. Drink ONE FULL GALLON the evening before, and the OTHER FULL GALLON early in the morning on the day of the procedure., 180.34, cm, 05/15/24 13:34:00 EST, Height, 92.3, kg, 05/07/23 10:46:00 EST, Dry Weight Start Date: 08/14/24 Status: Ordered Medication Dispense Status: Completed Quantity: 8000.0 Unit: mL Total Allowed Fills: 1 Fills Dispensed: 0 pioglitazone 30 mg oral tablet 1 tablet = 30 mg, By Mouth, Daily, # 90 tablet, 3 Refills, Maintenance, 11/30/24 1:22:00 PM EDT, Tablet, [facility] #[id number], Partial fill upon patient request if the prescription is for a schedule II opioid drug., 180.34, cm, 11/20/24 10:15:00 EDT, Height, 92.3, kg, 05/07/23 10:46:00 EST, Dry Weight Start Date: 11/30/24 Status: Ordered Medication Dispense Status: Completed Quantity: 90.0 Unit: tablet Total Allowed Fills: 4 Fills Dispensed: 0 spacer spacer, See Instructions, # 1 each, Refills 1, Tot. Refills 1, Maintenance, to use with Symbicort, 01/21/15 11:43:12 AM EST, Compound Start Date: 01/21/15 Status: Ordered Medication Dispense Status: Completed Quantity: 1.0 Unit: each Total Allowed Fills: 2 Fills Dispensed: 0 Trelegy Ellipta 200 mcg-62.5 mcg-25 mcg/inh inhalation powder 1 puffs, Inhalation, Daily, at the same time every day, # 1 each, 6 Refills, Maintenance, 07/27/21 9:41:00 AM EDT, Powder, [facility] #[id number], Partial fill upon patient request if the prescription is for a schedule II opioid drug., 1 puffs Inhalation Daily,Instr:at the same time every day, 183, cm, 07/27/21 9:28:00 EDT, Height, 109.5, kg, 02/19/20 8:37:00 EST, Dry Weight Start Date: 07/27/21 Status: Ordered Medication Dispense Status: Completed Quantity: 1.0 Unit: each Total Allowed Fills: 7 Fills Dispensed: 0 Indications: Nicotine dependence, cigarettes, uncomplicated; Trulicity Pen 4.5 mg/0.5 mL subcutaneous solution = 0.5 mL, Subcutaneous Injection, Every week, rotate injection sites, # 2 mL, 5 Refills, Maintenance, 06/11/24 12:02:00 PM EDT, Solution, [facility] #[id number], Partial fill upon patient request if the prescription is for a schedule II opioid drug., 180.34, cm, 05/15/24 13:34:00 EST, Height, 92.3, kg, 05/07/23 10:46:00 EST, Dry Weight Start Date: 06/11/24 Status: Ordered Medication Dispense Status: Completed Quantity: 2.0 Unit: mL Total Allowed Fills: 6 Fills Dispensed: 0 Tylenol Extra Strength 500 mg oral tablet 2 tablet = 1,000 mg, By Mouth, Every 8 hours, 0 Refills, Maintenance, 04/11/22 1:30:00 PM EST, Partial fill upon patient request if the prescription is for a schedule II opioid drug. Start Date: 04/11/22 Status: Ordered Medication Dispense Status: Completed Total Allowed Fills: 1 Fills Dispensed: 0 Ventolin HFA 108 mcg/inh inhalation aerosol with adapter 2 puffs, Inhalation, Every 4 hours, PRN for wheezing, # 1 each, 11 Refills, Maintenance, 11/25/18 3:31:19 PM EDT, Aerosol, [facility] #[id number] Start Date: 11/25/18 Stop Date: 11/20/19 Status: Ordered Medication Dispense Status: Completed Quantity: 1.0 Unit: each Total Allowed Fills: 12 Fills Dispensed: 0 Problem List Condition Confirmation Course Effective Dates Status H ealth Status Informant Tubular adenoma polyp of rectum colo 2021 recheck 2024 1 Confirmed Active Medical marijuana use 2 Confirmed 10/06/14 Active Carpal tunnel syndrome Confirmed Active Hypoxia, sleep related Confirmed Active 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 Chronic low back pain Confirmed Active Cigarette smoker refer 1800quit now Confirmed 03/20/21 Active Constipation Confirmed Active Erectile dysfunction Confirmed Active HTN (hypertension), benign Confirmed Active Hyperlipidemia, mixed Confirmed Active Hypothyroidism Confirmed Active Low serum testosterone level Confirmed Active Neurologic disorder associated with type II diabetes mellitus Confirmed Active Diabetic peripheral neuropathy 3 Confirmed Active Night cramps Confirmed Active Obese class I Confirmed Active Obesity (BMI 30-39.9) Confirmed Active Severe obstructive sleep apnea Confirmed Active Onychomycosis Confirmed Active Right cervical radiculopathy Confirmed Active COPD, severe Confirmed Active Left shoulder pain Confirmed Active Cervical stenosis of spine Confirmed Active Fatty liver sono 2015 Fib-4; 0.91 2020 Confirmed Active Hepatitis C antibody pos neg viral load 4 Confirmed Active Vitamin D deficiency Confirmed Active 1on colonoscopy 2010 2Medical use of Marijuana card # [id number] date 10/06/17/11- Sees podiatry every 8-9 weeks for foot care. 4antibody pos, shira load neg Social History Social History Type Response Tobacco Other: quit Oct 2021 . Sex Sex Representation Male (finding) Patient Care team information Care Team Personnel Name: Bailey GOFF, Maliha Kathleen Position: [facility] RN Member Role: Primary Care Nurse Name: Kaz Carter MD Position: [facility] Physician - Primary Care Member Role: PCP Address: [address] [place], [place] [id number] Telecom: Care Team Related Persons Name: RICHI CLEMENS Name: AVA SCHILLING Insurance Providers Guarantor name: TENZIN RAYMUNDO [employer] Plan Information #: 1 Payer: [facility] [employer] Payer Identifier: NA Member Number: [id number] Group Number: [id number] Subscriber Identifier: NA Relationship to Subscriber: self Coverage Type: Medicare Managed Care (Includes Medicare Advantage Plans) Coverage Verification Date: NA Telecom: NA Address:
--- NOTE | 2025-01-27 11:13 | MHC.OFFVIS ---
Vital Signs 01/27/25 11:15 Height 5 ft 11 in Weight 220 lb 7.396 oz BMI 30.7 BP 120/60 Blood Pressure Location Lt brachial Position Sitting Pulse 96 Pulse Source Pulse Oximeter Pulse Oximetry (%) 95 Oxygen Delivery Method Nasal Cannula Oxygen Flow Rate 2 Intake Visit Reasons: COPD Intake Note: pt is here for follow up and states he is feeling good, using oxygen at night with cpap and exertion when needed. Coremaker Bench Required: No Allergies No Known Allergies (No Known Allergies*) Allergy (Unknown, Verified 01/27/25 11:30) Medication List - Last Reconciled 01/27/25 by Brennen Smith MD albuterol sulfate 90 mcg/actuation 2 puffs PO Q4-6H PRN 30 days albuterol sulfate 2.5 mg (3 mL) inhalation Q6H PRN atorvastatin 20 mg PO DAILY docusate sodium 100 mg PO BID dulaglutide (Trulicity) 4.5 mg subcut QWEEK sthxneidjus-rswgtrjjn-nkxioepd 200-62.5-25 mcg (Trelegy Ellipta) 1 ea PO DAILY lisinopril 5 mg PO DAILY magnesium oxide 1,000 mg PO DAILY metformin ER 1,000 mg PO BID naloxone 4 mg/actuation 0 sprays intranasal nicotine (Nicotrol) 1 inh inhalation Q2-4H PRN 30 days omeprazole 20 mg PO DAILY PRN oxycodone 20 mg PO Q4H PRN oxycodone mg PO pioglitazone 30 mg PO DAILY Do you need a note to return to daycare/school/sports/work: No HPI HPI COPD: Details: Salvador is 74 years old gentleman with advanced COPD and chronic respiratory failure. He is on maximum medical treatment including oxygen supplementation on exertion, and also use of ventilator at home at nighttime. [facility] Medical History Ulnar neuropathy at elbow Dyspnea on exertion Respiratory failure with hypoxia and hypercapnia Nocturnal hypoxemia Smoker COPD (chronic obstructive pulmonary disease) EFRAIN on CPAP Obesity (BMI 30.0-34.9) Surgical History History of shoulder surgery History of neck surgery Social History Alcohol intake: current Alcohol intake frequency: holidays/special occasions only Patient Tobacco Use Status: Current everyday Tobacco user Tobacco use type: Cigarette Cigarette Packs Per Day: 0.5 Cigarettes Per Day: 10 Years Smoked: 20+ years, could be a pack a day at times. Current occupational status: retired Review of Systems Const All systems reviewed & are unremarkable except as noted in HPI and below Eyes Reports no additional complaints ENT Reports no additional complaints Card Denies chest pain, Denies irregular heart rhythm and Denies leg edema Resp Reports as per HPI GI Reports no additional complaints Reports no additional complaints Musc Reports back pain (Chronic, being treated with long-acting oxycodone) Skin/Breast Reports system reviewed and no additional complaints, except as documented Neuro Reports no additional complaints Psych Reports no additional complaints Endo Reports other (Being treated for type 2 diabetes mellitus and hyperlipidemia, hypothyroidi) Physical Exam Vital Signs: Last Vital Signs Pulse 96 01/27/25 11:15 BP 120/60 01/27/25 11:15 Pulse Ox 95 01/27/25 11:15 Oxygen Delivery Method Nasal Cannula 01/27/25 11:15 Oxygen Flow Rate 2 01/27/25 11:15 BMI result Body Mass Index 30.7 Const General: healthy appearing, comfortable, no acute distress, alert and awake Orientation/consciousness: patient oriented x3 HEENT Head: Yes normal to inspection General nose exam: No nasal polyps present and No nasal discharge present Face and sinus: Yes sinuses nontender Mouth: oropharynx normal Throat: Yes posterior oropharynx normal Eyes General: appearance normal, both eyes and all related structures Neck Neck: Yes normal visual inspection, Yes no lymphadenopathy, Yes trachea midline and Yes no JVD Thyroid: Thyroid normal Chest Chest palpation & inspection: normal inspection of the chest, normal palpation of entire chest wall and no tenderness Resp Other: Percussion note is resonant, breath sounds are distant but equal on both sides with prolonged expiratory phase. Lungs are quite clear today and I did not hear any wheezes or crepitations. Cardio Palpation: normal PMI Rate: regular rate Rhythm: regular rhythm Heart sounds: no gallops and no murmurs GI Palpation (GI): Soft to palpation, nontender, No hepatosplenomegaly present and no masses Auscultation: normal bowel sounds Back/Spine/Pelvis Thoracic/Lumbar Spine: thoracic and lumbar spine normal to inspection Skin General skin exam: no rashes or lesions noted Neuro General: patient oriented x3 and no focal motor deficits Cranial nerves: Yes CN's II-XII intact bilaterally Extrem General: Yes normal to inspection, Yes no clubbing, cyanosis or edema and Yes no calf tenderness Psych Appearance: grossly normal and well kempt Speech and movement: Normal speech and movement present Results Reviewed Results Reviewed: Compliance report for the last 30 nights reviewed and he has used 28/30 nights. He missed on 2 nights because he went to sleep before putting on the mask. He has used on an average 6 hours 5 minutes per night. There is very little air leak. Residual AHI 1.4. VENOUS BLOOD GAS STUDY ORDERED. Assessment & Plan Assessment & Plan (1) EFRAIN on CPAP: Comment: HE HAS CHRONIC EFRAIN/HYPOVENTILATION SYNDROME. WELL TREATED WITH HIS NONINVASIVE VENTILATORY SUPPORT AT NIGHT(IVAPS ) with nasal pillows. COMPLIANCE IS GOOD AND HE IS BENEFITING FROM THE USE OF VENTILATORY SUPPORT. Code(s): G47.33 - Obstructive sleep apnea (adult) (pediatric); Z99.89 - Dependence on other enabling machines and devices Category: Medical Plan: Results of compliance reviewed with him. Commended. For good compliance Advised to continue using the iVAPS every night and increased to about 7 hours per night. (2) COPD (chronic obstructive pulmonary disease): Comment: COPD, IS SEVERE , BUT has been CONTROLLED AND STABLE WITH HIS CURRENT MEDICAL REGIMEN. However now for the past many weeks he is having increased shortness of breath on minimal exertion. There has been no acute respiratory infection, but he does seem to have upper respiratory congestion. UNFORTUNATELY, HE CONTINUES TO SMOKE, SAY IS HE IS BACK TO HALF PACK A DAY. Code(s): J44.9 - Chronic obstructive pulmonary disease, unspecified Category: Medical Plan: Continue the present medical regimen which includes Trelegy Ellipta once a day, albuterol HFA 2 puffs Q 4-6 hours p.r.n. or albuterol solution in the nebulizer Q 6 hours p.r.n. (3) Respiratory failure with hypoxia and hypercapnia: Comment: Has chronic COPD/EFRAIN/hypoventilation syndrome, VENOUS BLOOD GAS STUDY SHOWED THAT HE HAS CHRONIC COMPENSATED HYPERCAPNIC RESP . FAILURE PCO2 66 BEING TREATED WITH IVAPS MODE OF VENTILATORY SUPPORT, SINCE ABOUT 12 YEARS AGO, WHEN HE HAD CPAP TITRATION STUDY AT [facility] Also uses O2 2 L/minute at night along with the iVAPS . Remains very compliant. HE ALSO NEEDS PORTABLE OXYGEN DURING THE DAYTIME. AT 2 L/MINUTE. HE IS HAPPY WITH LIGHTWEIGHT POC. Code(s): J96.91 - Respiratory failure, unspecified with hypoxia; J96.92 - Respiratory failure, unspecified with hypercapnia Category: Medical Plan: CONTINUE TO USE IVAPS, MINIMAL 7 HOURS PER NIGHT. CONTINUE OXYGEN 2 L/MINUTE WITH THE IVAPS AT NIGHT. USE O2 2 L/MINUTE WITH POC , FOR ANY OUTDOOR ACTIVITIES OR FOR ANY PHYSICAL WORK AT HOME. (4) Smoker: Comment: CHRONIC SMOKER, HAS TRY TO QUIT MANY TIMES BUT CAN NOT. SAY IS THAT HE IS DOWN TO HALF PACK A DAY. Code(s): F17.200 - Nicotine dependence, unspecified, uncomplicated Category: Social Hx Plan: AGAIN TALKED TO HIM AND ADVISE THAT HE NEEDS TO QUIT SMOKING COMPLETELY Orders: Orders Venous Blood Gas Today J44.9 - Chronic obstructive pulmonary disease, unspecified, J96.91 - Respiratory failure, unspecified with hypoxia, J96.92 - Respiratory failure, unspecified with hypercapnia Coding Level of Care Code Est Pt Level 4 (73868) Diagnoses EFRAIN on CPAP G47.33; Z99.89 COPD (chronic obstructive pulmonary disease) J44.9 Respiratory failure with hypoxia and hypercapnia J96.91; J96.92 Smoker F17.200
[2025-01-27 11:15] VITALS: BP 120/60; PULSE 96; O2SAT 95; BMI 30.7
--- OUTSIDE RECORDS SUMMARY | 2025-01-27 21:54 | XMS_ITS | Data Portability ---
Author Organization [employer] [facility] [place] [employer] [facility] Address [address] [place] [address] Care Team Providers Care Bleach Supervisor Name Role Phone HIM CCA OTHER Assessment Encounter Date Assessment Date Assessment LastModified by Organization Details LastModified Time 02/11/2024 02/11/2024 Evaluation in the field was performed by my city wellness coordinator colleague, as noted above, I provided real-time [...] Address Organization Details Last Updated DateTime 4 59383.3 2 g 95 % 95 % 182.88 [...] ICD10 Code Diagnosis IMO Codes Diagnosis Note [id number] MD Main - [facility] [address] [place] [phone] 02/11/2024 15:59:43 02/11/2024 20:52:14 Adult health examination [id number] Z00.00 Health Concerns Section Related Observation LastModified by Organization Detai ls LastModified Time None Recorded Concern Status LastModified by Organization Details LastModified Time None Recorded Advance Directives Directive None Recorded Payers Insurance Date Sequence Insurance Name Policy Number Policy Matta Covered Member ID Matta Member ID Guarantor Name 02/11/2024 1 [facility] - DOS ON OR AFTER 2022 - DUAL ELIGIBLE - [facility] OPTIONS AND ONE CARE (MEDICARE REPLACEMENT/ADV ANTAGE - HMO) Salvador Mcginnis [id number] Salvador Mcginnis Notes Date Note Type Note Provider Name and Address Organization Details Recorded Time 02/11/2024 text/html ROS as noted in the [facility] Nurse Triage Notes (Effie Carlisle): Chief Complaints: Diabetes-related PMH: Diabetes Mellitus Type 2, Hypertension, Chronic Obstructive Pulmonary Disease (COPD) Comments: Needs a diabetic assessment prior to receiving diabetic shoes at [email or web address]Unable to get an appt with PCP until end of May and will not be able to get his diabetic shoes. Patient is not having any acute diabetic problems. Asymptomatic. Takes Trulicity once and week and Metformin daily. ................... ................... ................... ................... ................... ................... ................... ........ Insurance Healthcare Representative Note From Catia Lira: Sent to a [...] is advised to follow up with a plant operations manager. If no plant operations manager, follow up with PCP/diabetic Dr. After talking with [facility], states pt has a plant operations manager, and will follow up with plant operations manager. Red flags discussed. Pt has no further questions. ................... ................... ................... ................... ................... ................... ................... ........ [facility] Consulted: Karolina St ................... ................... ................... ................... ................... ................... ................... ........ Disposition: Fulfilled Karolina St MD [address] [facility],[address], [place], [phone], [facility] 02/11/2024 17:18:29
== END 2025-01-27 11:31 | disposition home or self-care (01) ==
LOC: HO.HPS 11:06
PROVIDERS: PCP Internal Medicine; Visit Provider Internal Medicine
DX: G47.33 Obstructive sleep apnea (adult) (pediatric) (principal); Z99.89 Dependence on other enabling machines and devices; J44.9 Chronic obstructive pulmonary disease, unspecified; J96.91 Respiratory failure, unspecified with hypoxia; J96.92 Respiratory failure, unspecified with hypercapnia; F17.200 Nicotine dependence, unspecified, uncomplicated
CPT/HCPCS: 99214

== ENCOUNTER 2025-01-27 11:06 | Outpatient (REF) | payer OTHER, SELFPAY ==
[2025-01-27 11:48] LABS: MANUAL DIFF FLAG NO
[2025-01-27 11:55] LABS: Venous Blood Gas Refer to POC result
[2025-01-27 11:56] LABS: VBG HCO3 36 mmol/L (22-26); VBG O2 % Saturation 84.0 %
[2025-01-27 12:26] LABS: Hematocrit 42.7 % (42.0-52.0); Hemoglobin 13.5 g/dl (14.0-18.0); Imm Gran Abs Auto 0.02 X10*3/uL (0.00-0.03); Imm Gran Pct Auto 0.4 % (0.0-0.4); Lymphocytes Absolute Auto 1.2 X10*3/uL (1.2-4.9); Mean Corpuscular HGB Conc 31.6 g/dl (31.0-36.0); Mean Corpuscular Hemoglobin 27.8 pg (27.0-33.0); Mean Corpuscular Volume 88.0 fL (80.0-98.0); NRBC Abs Auto 0.000 X10*3/uL (0.0-0.012); NRBC Pct Auto 0.0 /100WBC (0.0-0.2); Platelet Count 161 X10*3/uL (160-400); Red Blood Count 4.85 X10*6/uL (4.60-5.80); White Blood Count 5.6 X10*3/uL (4.8-10.8)
== END 2025-01-27 11:07 | disposition home or self-care (01) ==
LOC: HO.LAB 11:06
PROVIDERS: PCP Internal Medicine; Visit Provider Internal Medicine
DX: J44.9 Chronic obstructive pulmonary disease, unspecified (principal); J96.91 Respiratory failure, unspecified with hypoxia; J96.92 Respiratory failure, unspecified with hypercapnia; G47.33 Obstructive sleep apnea (adult) (pediatric); F17.210 Nicotine dependence, cigarettes, uncomplicated; Z99.89 Dependence on other enabling machines and devices
CPT/HCPCS: 36415; 82803; 85025; 99212